=== PATIENT | female | born 1950 | race Caucasian/White ===

== ENCOUNTER 2016-04-22 04:44 | Emergency (ER) | payer OTHER ==
[~2016-04-22] VITALS: Ht 170.2 cm; Wt 84.1 kg
[2016-04-22 04:47] VITALS: BP 177/70; PULSE 65; RESP 16; TEMP 87.4; TEMP 98.7; O2SAT 99
[2016-04-22 06:18] LABS: AUTOMATED NEUTROPHIL # 1.8 TH/MM3 (1.8-7.7); BACTERIA, URINE RARE /hpf; BASOPHIL % 0.3 % (0.0-2.0); BLOOD, URINE NEG (NEG); COMMENT (UR) CULT NOT INDICATED; CULTURE IF INDICATED CULT NOT INDICATED; EOSINOPHIL # 0.1 TH/MM3 (0-0.4); EOSINOPHIL % 4.4 % (0.0-4.0); GLUCOSE,URINE NEG (NEG); HEMATOCRIT 29.7 % (35.0-46.0); HYALINE CAST, URINE 2 /lpf (RARE); KETONE, URINE NEG (NEG); LYMPH % 16.1 % (9.0-44.0); LYMPHOCYTE # 0.4 TH/MM3 (1.0-4.8); MEAN CORPUSCULAR HEMOGLOBIN 36.4 PG (27.0-34.0); MEAN CORPUSCULAR HGB CONC 33.7 % (32.0-36.0); MUCUS URINE FEW /lpf (OCC); NEUT % 66.2 % (16.0-70.0); NITRITE,URINE NEG (NEG); PH, URINE 5.5 (5.0-8.5); PLATELET COUNT 73 TH/MM3 (150-450); RED BLOOD COUNT 2.75 MIL/MM3 (4.00-5.30); RED CELL DISTRIBUTION WIDTH 16.4 % (11.6-17.2); RENAL EPITHELIAL CELLS <1 /hpf; SQUAMOUS EPITHELIAL CELL URINE <1 /hpf (0-5); URINE COLOR YELLOW (YELLW/STRAW); WHITE BLOOD COUNT 2.7 TH/MM3 (4.0-11.0)
[2016-04-22 06:23] LABS: HEMO FLAGS AUTO DIFF
[2016-04-22 06:29] LABS: APTT (PATIENT) 24.6 SEC (24.3-30.1); PROTHROMBIN TIME - PATIENT 11.4 SEC (9.8-11.6)
[2016-04-22 06:37] LABS: ALKALINE PHOSPHATASE 180 U/L (45-117); TOTAL BILIRUBIN ADULT 0.7 MG/DL (0.2-1.0)
[2016-04-22 06:39] LABS: ALT (GPT) 80 U/L (10-53); ANION GAP 7 MEQ/L (5-15); AST (GOT) 71 U/L (15-37); BICARBONATE 22.9 MEQ/L (21.0-32.0); BLOOD UREA NITROGEN 29 MG/DL (7-18); CHLORIDE 115 MEQ/L (98-107); GLOMERULAR FILTRATION RATE 35 ML/MIN (>89); SODIUM (NA) 145 MEQ/L (136-145)
[2016-04-22 06:43] LABS: POTASSIUM 4.2 MEQ/L (3.5-5.1)
--- NOTE | 2016-04-22 06:50 | RADRPT ---
EXAM DATE/TIME: 04/22/2016 06:15 [facility] COMPARISON: No previous studies available for comparison. INDICATIONS : Shortness of breath. MEDICAL HISTORY : None. SURGICAL HISTORY : None. ENCOUNTER: Initial ACUITY: 1 day PAIN SCORE: 0/10 LOCATION: Bilateral chest FINDINGS: A single view of the chest demonstrates the lungs to be symmetrically aerated without evidence of mas s, infiltrate or effusion. The cardiomediastinal contours are unremarkable. Osseous structures are intact. CONCLUSION: No acute disease. Chente Easley MD on April 22, 2016 at 6:48 Board Certified Radiologist. This report was verified electronically.
[2016-04-22] MEDS ORDERED: FURO1TAB62 PO (06:59)
[2016-04-22] MEDS ORDERED: HUMALOG SQ (06:59)
[2016-04-22] MEDS ORDERED: ASPI81CH CHEW (06:59)
[2016-04-22] MEDS ORDERED: LANTUS2P SQ (06:59)
[2016-04-22] MEDS ORDERED: TACR1 PO (06:59)
[2016-04-22] MEDS ORDERED: ASPI81TA81 (06:59)
--- NOTE | 2016-04-22 06:59 | PD ---
HPI Chief Complaint: Edema Time Seen by Provider: 05:24 Travel History International Travel<30 days: No Contact w/Intl Traveler<30days: No Traveled to known affect area: No History of Present Illness HPI The patient is a 66 year old female who presents to the [facility] emergency department with a history of abdominal distention that has gradually been getting worse over the last 2 weeks. The patient's medical history is complicated by having liver failure related to [place]. The patient reports that she had a liver transplant done in October 2015. She reports that she suddenly began to develop ascites in March. She reports that she had a diagnostic paracentesis done on March 28, 2016 in [place]. She reports that her liver enzymes are being monitored regularly. She reports that she came to [place] for a short vacation. She reports that she plans on returning back in a week. She reports that she decided to come to the emergency department today when she became short of breath with lying flat due to the swelling in her abdomen pushing up her diaphragm. She reports that yesterday she did try to set up an outpatient paracentesis, however she was told that she would need a local H&P done prior to this being accomplished. The patient denies any recent fevers cough, congestion, neck pain, chest pain, worsening lower extremity edema , calf pain, calf erythema abdominal pain, vomiting, diarrhea, urinary symptoms , or neurologic symptoms. [facility] Past Medical History Narrative Medical The patient's past medical history is significant for COPD, diabetes mellitus, liver failure status post liver transplant. Hx Anticoagulant Therapy: Yes (ASA) Diabetes: Yes (TYPE 2) Patient Takes Glucophage: No Diminished Hearing: No Medical other: Yes (HX OF CONNE[place]) Respiratory: Yes (COPD) ?: Not Past Surgical History Narrative Surgical The patient's past surgical history is significant for a liver transplant, C- section, anion ectomy of bilateral feet, cholecystectomy, skin cancer resection from the left shoulder, benign lump removed from the left side of the neck. Abdominal Surgery: Yes (LIVER TRANSPLANT) Section: Yes Cholecystectomy: Yes Gynecologic Surgery: Yes () Social History Alcohol Use: No Tobacco Use: No Substance Use: No Allergies-Medications (Allergen,Severity, Reaction): Coded Allergies: Sulfa (Verified Allergy, Intermediate, BLISTERS IN MOUTH, 04/22/16) Reported Meds & Prescriptions Reported Meds & Active Scripts Active Reported Lasix (Furosemide) 20 Mg Tab 20 Mg PO DAILY Prograf (Tacrolimus) 1 Mg Cap 2 Mg PO BID Aspirin 81 Mg Chew 81 Mg CHEW DAILY Aspir-81 (Aspirin) 81 Mg Tabdr Humalog Inj (Insulin Human Lispro) 1,000 Unit/10 Ml Vial 1-9 Units SQ ACHS Max dose at bedtime:( )units; sugars< 70,(0)units; sugars 150-199,(1)unit; sugars 200-249,(3)units; sugars 250-299,(5)units; sugars 300-349,(7)units; sugars more than 349,(9)units. Lantus Inj (Insulin Glargine) 1,000 Unit/10 Ml Vial 20 Units SQ HS Review of Systems Except as stated in HPI: all other systems reviewed are Neg General / Constitutional: No: Fever Eyes: No: Visual changes HENT: No: Headaches Cardiovascular: No: Chest Pain or Discomfort Respiratory: No: Shortness of Breath Gastrointestinal: Positive: Abdominal Pain (abdominal distention), No: Nausea , Vomiting, Diarrhea Genitourinary: No: Dysuria Musculoskeletal: No: Pain Skin: No Rash Neurologic: No: Weakness, Focal Abnormalities, Change in Mentation, Slurred Speech, Sensory Disturbance Psychiatric: No: Depression Endocrine: No: Polydipsia Hematologic/Lymphatic: No: Easy Bruising Physical Exam Narrative General: The patient is a well-developed well-nourished female in no acute distress. Head and Neck exam: Head is normocephalic atraumatic. Eyes: Pupils are equal round and reactive to light. Nose: Midline septum with pink mucous membranes Mouth: Dentition unremarkable. Moist mucus membranes. Posterior oropharynx is not erythematous. No tonsillar hypertrophy. Uvula midline. Airway patent. Neck: No palpable lymphadenopathy. No nuchal rigidity. No thyromegaly. Cardiovascular: Regular rate and rhythm without murmurs, gallops, or rubs. Lungs: Clear to auscultation bilaterally. No wheezes, rhonchi, or rales. Abdomen: Soft, without tenderness to palpation in all 4 quadrants of the abdomen. The patient has abdominal distention noted with a positive fluid wave. No guarding , rebound, or rigidity. Negative [place] sign. No tenderness on palpation of McBurney's point. Extremities: No clubbing or cyanosis. The patient has trace pedal edema bilateral lower extremities. 2+ pulses in all 4 extremities. No calf tenderness on palpation. Back: No spinous process tenderness to palpation. No costovertebral angle tenderness to palpation. Neurologic Exam: Grossly nonfocal. Skin Exam: No rash noted. Intact skin that is warm and dry. Data Data Last Documented VS Vital Signs Date Time Temp Pulse Resp B/P Pulse Ox O2 Delivery O2 Flow Rate FiO2 04/22/16 04:47 98.7 65 16 177/70 99 Orders Electrocardiogram (04/22/16 05:41) Complete Blood Count With Diff (04/22/16 05:41) Comprehensive Metabolic Panel (04/22/16 05:41) B-Type Natriuretic Peptide (04/22/16 05:41) Prothrombin Time / Inr (Pt) (04/22/16 05:41) Act Partial Throm Time (Ptt) (04/22/16 05:41) Lipase (04/22/16 05:41) Urinalysis - C+S If Indicated (04/22/16 05:41) Magnesium (Mg) (04/22/16 05:41) Chest, Single Ap (04/22/16 05:41) Iv Access Insert/Monitor (04/22/16 05:41) Ecg Monitoring (04/22/16 05:41) Oximetry (04/22/16 05:41) Labs Laboratory Tests Test 04/22/16 06:00 White Blood Count 2.7 TH/MM3 Red Blood Count 2.75 MIL/MM3 Hemoglobin 10.0 GM/DL Hematocrit 29.7 % Mean Corpuscular Volume 108.0 FL Mean Corpuscular Hemoglobin 36.4 PG Mean Corpuscular Hemoglobin 33.7 % Concent Red Cell Distribution Width 16.4 % Platelet Count 73 TH/MM3 Mean Platelet Volume 9.1 FL Neutrophils (%) (Auto) 66.2 % Lymphocytes (%) (Auto) 16.1 % Monocytes (%) (Auto) 13.0 % Eosinophils (%) (Auto) 4.4 % Basophils (%) (Auto) 0.3 % Neutrophils # (Auto) 1.8 TH/MM3 Lymphocytes # (Auto) 0.4 TH/MM3 Monocytes # (Auto) 0.3 TH/MM3 Eosinophils # (Auto) 0.1 TH/MM3 Basophils # (Auto) 0.0 TH/MM3 CBC Comment AUTO DIFF Prothrombin Time 11.4 SEC Prothromb Time International 1.0 RATIO Ratio Activated Partial 24.6 SEC Thromboplast Time Urine Color YELLOW Urine Turbidity CLEAR Urine pH 5.5 Urine Specific [place] 1.013 Urine Protein NEG mg/dL Urine Glucose (UA) NEG mg/dL Urine Ketones NEG mg/dL Urine Occult Blood NEG Urine Nitrite NEG Urine Bilirubin NEG Urine Urobilinogen LESS THAN 2.0 MG/DL Urine Leukocyte Esterase NEG Urine WBC 3 /hpf Urine Squamous Epithelial <1 /hpf Cells Urine Renal Epithelial Cells <1 /hpf Urine Bacteria RARE /hpf Urine Hyaline Casts 2 /lpf Urine Mucus FEW /lpf Microscopic Urinalysis Comment CULT NOT INDICATED Sodium Level 145 MEQ/L Potassium Level 4.2 MEQ/L Chloride Level 115 MEQ/L Carbon Dioxide Level 22.9 MEQ/L Anion Gap 7 MEQ/L Blood Urea Nitrogen 29 MG/DL Creatinine 1.49 MG/DL Estimat Glomerular Filtration 35 ML/MIN Rate Random Glucose 66 MG/DL Calcium Level 8.1 MG/DL Magnesium Level 2.0 MG/DL Total Bilirubin 0.7 MG/DL Aspartate Amino Transf 71 U/L (AST/SGOT) Alanine Aminotransferase 80 U/L (ALT/SGPT) Alkaline Phosphatase 180 U/L B-Type Natriuretic Peptide 137 PG/ML Total Protein 6.1 GM/DL Albumin 3.4 GM/DL Lipase 27 U/L MDM Medical Decision Making Medical Screen Exam Complete: Yes Emergency Medical Condition: Yes Medical Record Reviewed: Yes Differential Diagnosis Recurrent ascites, versus pneumonia, versus congestive heart failure Narrative Course During the course of the patients emergency department visit, the patients history, examination, and differential diagnosis were reviewed with the patient. The patient had IV access obtained and blood work sent for analysis. The patient was placed on a cardiac tech with oximetry and blood pressure monitoring. An EKG was done on arrival. The patient's EKG shows a sinus rhythm , right bundle branch block, left anterior fascicular block, intraventricular conduction delay of 140 ms, no acute ST segment elevation is noted, T waves are inverted in V1. The patients laboratory studies were reviewed and remarkable for a white count of 2.7, hemoglobin 10, platelets 73, monocytes 13, CMP is remarkable for a chloride of 115, BUN 29, creatinine 1.49, glucose 66, AST 71, ALT 80, alkaline phosphatase 180, BNP 137, lipase 27, PT 11.4, INR 1.0, PTT 24.6, urinalysis is unremarkable. The patient's Accu-Chek were read repeated. The patient had a blood sugar of 76. Radiology studies were reviewed and remarkable for a chest x-ray that shows no acute abnormality. A call was placed out to the interventional radiology Department. I spoke to the ultrasound area and was told the proper way to schedule an outpatient paracentesis for this patient. A lab slip was ordered on the patient for a therapeutic ultrasound-guided paracentesis. The necessary labs were ordered and the criteria was met and that the patient's platelet count is greater than 50, INR is less than 2. The patient will be given a copy of her current laboratory studies to share with her doctors in [place]. The patient will be given a copy of her outpatient order sheet. I was told that the patient will be contacted by the interventional field education coordinator, Anisha, later today. The patient is resting comfortably and feels better, is alert and in no distress. The patients results and examination findings were discussed with the patient. The repeat examination is unremarkable and benign. The history, exam, diagnostic testing, and current condition do not suggest any significant pathology to warrant further testing, continued ED treatment, admission, or surgical evaluation at this point. The vital signs have been stable. The patient does not have uncontrollable pain, intractable vomiting, or other significant symptoms. The patient's condition is stable and appropriate for discharge. The patient will pursue further outpatient evaluation with a primary care physician or other designated or consulting physician as indicated in the discharge instructions. The patient expressed understanding and was agreeable with this plan. Diagnosis Primary Impression: Ascites Qualified Code: R18.8 - Other ascites Referrals: Primary Care Physician 1 week Patient Instructions: Ascites (ED), General Instructions Additional Instructions: Follow-up with outpatient interventional radiology for therapeutic ultrasound- guided paracentesis Disposition: 01 DISCHARGE HOME Condition: Stable Briana Valdez MD Apr 22, 2016 06:59
[2016-04-22 07:19] LABS: PLATELET ESTIMATE SMEAR LOW (NORMAL); PLATELET MORPHOLOGY NORMAL (NORMAL); SCAN/DIFF AUTO DIFF CONFIRMED
--- NOTE | 2016-04-23 22:48 | EKG ---
Date Performed: 04/22/2016 Time Performed: 07:08:00 PTAGE: 66 years EKG: Sinus rhythm RIGHT BUNDLE BRANCH BLOCK LEFT ANTERIOR FASCICULAR BLOCK POSSIBLE SEPTAL MYOCARDIAL INFARCTION ABNOR MAL ECG NO PREVIOUS TRACING DOCTOR: Sabrina Villasenor Interpretating Date/Time 04/23/2016 22:46:49
== END 2016-04-22 08:36 | disposition home or self-care (01) ==
LOC: NEPC 04:44
DX: R18.8 Other ascites (principal); R94.31 Abnormal electrocardiogram [ECG] [EKG]; R06.02 Shortness of breath; E11.9 Type 2 diabetes mellitus without complications; Z79.01 Long term (current) use of anticoagulants; Z94.4 Liver transplant status
CPT/HCPCS: 71010; 80053; 81001; 83690; 83735; 83880; 85025; 85610; 85730; 93005; 99283

== ENCOUNTER 2016-04-23 13:18 | Day surgery (SDC) | payer OTHER ==
[~2016-04-23 13:18] MED LIST: ASPI81CH CHEW; ASPI81TA81; FURO1TAB62 PO; HUMALOG SQ; LANTUS2P SQ; TACR1 PO
[2016-04-23 14:19] VITALS: BP 146/73; PULSE 58; RESP 16; O2SAT 97
[2016-04-23] MEDS ORDERED: ALBUMIN HUMAN 25% 25 GM/100 ML BAGP IV ONE (15:00)
--- NOTE | 2016-04-23 15:47 | RADRPT ---
EXAM DATE/TIME: 04/23/2016 14:29 [facility] COMPARISON: No previous studies available for comparison. INDICATIONS : Ascites. MEDICAL HISTORY : Chronic obstructive pulmonary disease. Diabetes mellitus type 2. SURGICAL HISTORY : section. Liver transplant. ENCOUNTER: Initial ACUITY: 2 weeks PAIN SCORE: 4/10 LOCATION: Left lower quadrant FLUID: Total volume of 6000 cc of clear, yellow fluid was removed. Fluid was discarded. Paracentesis was therapeutic only. Post procedure scanning reveals no hematoma or other complication. TECHNIQUE: 1. Ultrasound guidance for abdominal paracentesis. 2. Paracentesis. The risks, benefits, and alternatives to ultrasound guided paracentesis were explained to the patient in detail including the risk of bleeding and infection. Written and verbal informed consent was obt ained. With the patient on the ultrasound table, ultrasound imaging was used to select the most appropriate approach for paracentesis. Overlying skin was prepped and draped in the usual sterile fashion and wi th a local anesthetic, a dermatotomy was made with an 11 blade scalpel. A 6 [place] [id number] ca theter was introduced into the peritoneal cavity and fluid was collected. The patient tolerated the procedure well and left the ultrasound suite in stable condition. CONCLUSION: Uncomplicated ultrasound guided paracentesis. Patient received albumin per protocol. Umesh Salamanca MD FACR on April 23, 2016 at 15:45 Board Certified Radiologist. This report was verified electronically.
[2016-04-23] MEDS ORDERED: ALBUMIN HUMAN 25% 12.5 GM/50 ML BAGP IV ONE (16:02)
[2016-04-23 16:35] VITALS: BP 153/81; PULSE 66; RESP 16; O2SAT 95
== END 2016-04-23 16:45 | disposition home or self-care (01) ==
LOC: HRAD 13:18 → HRIP 13:44 → HRAD 16:45
PROVIDERS: ATTEND Family Medicine
DX: R18.8 Other ascites (principal); J44.9 Chronic obstructive pulmonary disease, unspecified; E11.9 Type 2 diabetes mellitus without complications
CPT/HCPCS: 49083; 96365; C1729; P9047

== ENCOUNTER 2017-04-11 11:54 | Inpatient (IN) | payer MEDICARE, OTHER ==
[~2017-04-11] VITALS: Ht 170.2 cm; Wt 79.0 kg
[~2017-04-11 11:54] MED LIST changes: +ASPI-516 CHEW; -ASPI81CH CHEW
[2017-04-11 11:55] VITALS: BP 165/71; PULSE 74; RESP 14; TEMP 98.1; O2SAT 99
[2017-04-11] MEDS ORDERED: CYCL100C6 PO (12:26)
--- NOTE | 2017-04-11 12:30 | PD ---
HPI Chief Complaint: Dizziness Time Seen by Provider: 12:08 Travel History International Travel<30 days: No Contact w/Intl Traveler<30days: No Traveled to known affect area: No History of Present Illness HPI 67-year-old female that presents to the ED for evaluation of vertigo, nausea and vomiting since last night as well as feeling of weakness. Per patient she' s had this for about less than 24 hours. Per patient she has significant history including Castellanos and diabetes. 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 She's been compliant with her immunosuppression. Per patient she's had episodes like this in the past and last time she had this she was told she had a UTI and was given Cipro with relief. Per patient he feels very similar. Per patient she doesn't have any dysuria or polyuria. She does get paracentesis every month and had one about 2 weeks ago with no issues. She denies any chest pain or shortness of breath. Per patient when she vomits she vomits phlegm. No blood. No blood in the stool or urine or throw up. Denies any cold-like symptoms. No fevers chills or sweats. Has not checked her temperature. Denies any headache or blurry vision or double vision. She does state feeling somewhat tired more weak than her usual. She is noted that she is gaining some weight but she attributes this to eating "too much during my vacation". States having no pain at this time. Other medical issues. She does have a history of a hernia that she's had since having the transplant [facility] Past Medical History Hx Anticoagulant Therapy: Yes (ASA) Diabetes: Yes (humalog, lantus ) Patient Takes Glucophage: No Diminished Hearing: No Respiratory: Yes (COPD) Past Surgical History Abdominal Surgery: Yes (LIVER TRANSPLANT) Section: Yes Cholecystectomy: Yes Gynecologic Surgery: Yes () Social History Alcohol Use: No Tobacco Use: No Substance Use: No Allergies-Medications (Allergen,Severity, Reaction): Coded Allergies: Sulfa (Sulfonamide Antibiotics) (Unverified Allergy, Intermediate, BLISTERS IN MOUTH, 04/11/17) Reported Meds & Prescriptions Reported Meds & Active Scripts Active Reported Cyclosporine 100 Mg Cap 100 Mg PO BID Lasix (Furosemide) 20 Mg Tab 40 Mg PO DAILY Aspirin 81 Mg Chew 81 Mg CHEW DAILY Humalog Inj (Insulin Human Lispro) 1,000 Unit/10 Ml Vial 1-9 Units SQ ACHS Max dose at bedtime:( )units; sugars< 70,(0)units; sugars 150-199,(1)unit; sugars 200-249,(3)units; sugars 250-299,(5)units; sugars 300-349,(7)units; sugars more than 349,(9)units. Lantus Inj (Insulin Glargine) 1,000 Unit/10 Ml Vial 18 Units SQ HS Review of Systems Except as stated in HPI: all other systems reviewed are Neg Physical Exam Narrative GENERAL: Well-nourished, well-developed patient in no apparent distress. SKIN: Warm and dry. HEAD: Atraumatic. Normocephalic. EYES: Pupils equal and round reactive to light and accommodation. No scleral icterus. No injection or drainage. ENT: No nasal bleeding or discharge. Mucous membranes pink and moist. TMs are clear with no sign of infection or perforation. No mastoid tenderness. Ear canals are intact bilaterally. No lymphadenopathy. Nostril mucosa is red and moist with clear mucus noted. No sinus tenderness to palpation noted. Tonsils are not enlarged or swollen. No ulvua Deviation. Tongue is midline. NECK: Trachea midline. No JVD. No meningeal signs noted CARDIOVASCULAR: Regular rate and rhythm. RESPIRATORY: No accessory muscle use. Clear to auscultation. Breath sounds equal bilaterally. GASTROINTESTINAL: Abdomen soft, non-tender, slightly distended with what appears to be a hernia that is chronic and reducible. Hepatic and splenic margins not palpable. MUSCULOSKELETAL: Extremities without clubbing, cyanosis, or edema. No obvious deformities. Full range of motion of the upper and lower extremities bilaterally. 2+ pulses bilaterally. NEUROLOGICAL: Awake and alert. No obvious cranial nerve deficits. Motor grossly within normal limits. Five out of 5 muscle strength in the arms and legs. Normal speech. PSYCHIATRIC: Appropriate mood and affect; insight and judgment normal. Data Data Last Documented VS Vital Signs Date Time Temp Pulse Resp B/P (MAP) Pulse Ox O2 Delivery O2 Flow Rate FiO2 04/11/17 11:55 98.1 74 14 165/71 (102) 99 Orders Orders Electrocardiogram (04/11/17 12:19) Complete Blood Count With Diff (04/11/17 12:19) Comprehensive Metabolic Panel (04/11/17 12:19) Prothrombin Time / Inr (Pt) (04/11/17 12:19) Act Partial Throm Time (Ptt) (04/11/17 12:19) Lactic Acid Sepsis Protocol (04/11/17:) Magnesium (Mg) (04/11/17 12:19) Lipase (04/11/17:) Urinalysis - C+S If Indicated (04/11/17:) Influenzae A/B Antigen (04/11/17:) Chest, Single Ap (04/11/17:) Ct Brain W/O Iv Contrast(Rout) (04/11/17 12:19) Ondansetron Inj (Zofran Inj) (04/11/17 13:15) Sodium Chlorid 0.9% 500 Ml Inj (Ns 500 M (04/11/17 13:30) Troponin I (04/11/17 13:26) Ckmb (Isoenzyme) Profile (04/11/17 13:26) Urine Culture (04/11/17 13:30) CKMB (04/11/17 12:30) CKMB% (04/11/17 12:30) Blood Culture (04/11/17 15:02) Code Status (04/11/17 15:01) Vital Signs (Adult) Q4H (04/11/17 15:01) Activity Oob Ad Nano (04/11/17 15:01) Bedside Glucose CHEY.CSUGAR (04/11/17 15:) Sales Promotion Coordinator / Telemetry .CONTINUOUS (04/11/17 15:) Intake + Output CHEY.QSHIFT (04/11/17 15:01) Notify Dr: Other (04/11/17 15:01) Sodium Chlor 0.9% 1000 Ml Inj (Ns 1000 M (04/11/17 15:00) Sodium Chloride 0.9% Flush (Ns Flush) (04/11/17 15:15) Sodium Chloride 0.9% Flush (Ns Flush) (04/11/17 21:00) Ondansetron Inj (Zofran Inj) (04/11/17 15:15) Comprehensive Metabolic Panel (04/12/17 06:00) Complete Blood Count With Diff (04/12/17 06:00) Creatine Kinase (Cpk) (04/11/17 15:01) Creatine Kinase (Cpk) (04/11/17 21:01) Troponin I (04/11/17 15:01) Troponin I (04/11/17 21:01) Blood Culture (04/11/17 15:01) Resp Oxygen Elno C Titrat 1-4 L (04/11/17 ) Case Management Consult (04/11/17 15:01) Enoxaparin Inj (Lovenox Inj) (04/11/17 16:00) Scd Bilateral/Knee High CHEY.BID (04/11/17 15:01) Naloxone Inj (Narcan Inj) (04/11/17 15:15) Sennosides (Senokot) (04/11/17 15:15) Bisacodyl Supp (Dulcolax Supp) (04/11/17 15:15) Lactulose Liq (Lactulose Liq) (04/11/17 15:15) Insulin Aspart Supplemtl Scale (Novolog (04/11/17 17:00) Aspirin Chew (Aspirin Chew) (04/12/17 09:00) Cyclosporine (Sandimmune) (04/11/17 21:00) Furosemide (Lasix) (04/12/17 09:00) Insulin Glargine Inj (Lantus Inj) (04/11/17 21:00) Admit Order (Ed Use Only) (04/11/17 15:06) Diet Full Liquid (04/11/17 Dinner) Dextrose 50% In [place] (Vial) Inj (D50w (Vi (04/11/17 15:15) Glucagon Inj (Glucagon Inj) (04/11/17 15:15) Ct Abd/Pel W/O Iv Contrast (04/11/17 ) Albuterol-Ipratropium Neb (Duoneb Neb) (04/11/17 16:00) Guaifenesin Er (Mucinex Er) (04/11/17 21:00) Resp Incentive Spirometry (04/11/17 ) Labs Laboratory Tests Test 04/11/17 12:30 04/11/17 13:30 White Blood Count 6.6 TH/MM3 Red Blood Count 3.41 MIL/MM3 Hemoglobin 12.0 GM/DL Hematocrit 36.0 % Mean Corpuscular Volume 105.5 FL Mean Corpuscular Hemoglobin 35.2 PG Mean Corpuscular Hemoglobin Concent 33.3 % Red Cell Distribution Width 15.5 % Platelet Count 113 TH/MM3 Mean Platelet Volume 8.6 FL Neutrophils (%) (Auto) 45.3 % Lymphocytes (%) (Auto) 44.6 % Monocytes (%) (Auto) 7.4 % Eosinophils (%) (Auto) 2.5 % Basophils (%) (Auto) 0.2 % Neutrophils # (Auto) 3.0 TH/MM3 Lymphocytes # (Auto) 3.0 TH/MM3 Monocytes # (Auto) 0.5 TH/MM3 Eosinophils # (Auto) 0.2 TH/MM3 Basophils # (Auto) 0.0 TH/MM3 CBC Comment DIFF FINAL Differential Comment Prothrombin Time 10.9 SEC Prothromb Time International Ratio 1.1 RATIO Activated Partial Thromboplast Time 22.9 SEC Blood Urea Nitrogen 38 MG/DL Creatinine 1.40 MG/DL Random Glucose 178 MG/DL Total Protein 7.8 GM/DL Albumin 3.5 GM/DL Calcium Level 8.2 MG/DL Magnesium Level 2.2 MG/DL Alkaline Phosphatase 124 U/L Aspartate Amino Transf (AST/SGOT) 80 U/L Alanine Aminotransferase (ALT/SGPT) 52 U/L Total Bilirubin 1.2 MG/DL Sodium Level 141 MEQ/L Potassium Level 5.3 MEQ/L Chloride Level 109 MEQ/L Carbon Dioxide Level 24.7 MEQ/L Anion Gap 7 MEQ/L Estimat Glomerular Filtration Rate 38 ML/MIN Lactic Acid Level 1.0 mmol/L Total Creatine Kinase 262 U/L Creatine Kinase MB 1.9 NG/ML Creatine Kinase MB % 0.7 % Troponin I LESS THAN 0.02 NG/ML Lipase LESS THAN 10 U/L Urine Color LIGHT-YELLOW Urine Turbidity CLEAR Urine pH 5.0 Urine Specific [place] 1.011 Urine Protein TRACE mg/dL Urine Glucose (UA) NEG mg/dL Urine Ketones NEG mg/dL Urine Occult Blood NEG Urine Nitrite NEG Urine Bilirubin NEG Urine Urobilinogen LESS THAN 2.0 MG/DL Urine Leukocyte Esterase TRACE Urine RBC 1 /hpf Urine WBC 2 /hpf Urine Squamous Epithelial Cells 1 /hpf Urine Transitional Epithelial Cells <1 /hpf Urine Bacteria RARE /hpf Urine Hyaline Casts 1 /lpf Microscopic Urinalysis Comment CATH-CULTURE IND MDM Medical Decision Making Medical Screen Exam Complete: Yes Emergency Medical Condition: Yes Medical Record Reviewed: Yes Interpretation(s) CBC & BMP Diagram 04/11/17 12:30 Total Protein 7.8, Albumin 3.5, Calcium Level 8.2 L, Magnesium Level 2.2, Alkaline Phosphatase 124 H, Aspartate Amino Transf (AST/SGOT) 80 H, Alanine Aminotransferase (ALT/SGPT) 52, Total Bilirubin 1.2 H lactic acid WNL UA shows leukerase esterase and some rare bacteria. EKG shows sinus rhythm with no sign of acute ischemia or arrhythmia recommended by me and attending. Troponin and CK-MB negative. Last Impressions Head CT 04/11/171218 Signed Impressions: Service Date/Time: Tuesday, April 11, 2017 12:41 - CONCLUSION: No acute disease. Sabra Sexton MD Chest X-Ray 04/11/171218 Signed Impressions: Service Date/Time: Tuesday, April 11, 2017 12:51 - CONCLUSION: No acute disease. Sabra Sexton MD Differential Diagnosis Dizziness versus vertigo versus UTI versus URI versus viral illness versus ACS versus arrhythmia Narrative Course 67-year-old female that presents to the ED for evaluation of vertigo and weakness. Patient was properly examined and was found to have signs and symptoms which appear to be consistent with possible infection. Patient states that she's had same symptoms of UTIs in the past. She does have significant history including transplant of liver with immunosuppressants. I do recommend workup to rule out any sign of acute illness. Patient agrees with this plan. Labs and imaging showed no sign of acute disease other than what appears to be acute on chronic kidney disease. Likely dehydration. We had the patient ambulate and she could barely make it. Patient still is very symptomatically feels very weak. Unclear as to the cause of symptoms. Patient has no abdominal pain on my examination. Patient was given IV fluids with minimal relief. Case was discussed in my attending who recommends admission for further evaluation as patient still very symptomatic. Case discussed with Dr. Ramachandran who agrees to admission to his service. Diagnosis Primary Impression: Pre-syncope Additional Impressions: Dizziness TRICIA (acute kidney injury) Weakness Admitting Information Admitting Physician Requests: Observation Johnie Rodríguez Apr 11, 2017 12:30
[2017-04-11 12:52] LABS: BASOPHIL % 0.2 % (0.0-2.0); EOSINOPHIL # 0.2 TH/MM3 (0-0.4); EOSINOPHIL % 2.5 % (0.0-4.0); LYMPH % 44.6 % (9.0-44.0); MEAN CELL VOLUME 105.5 FL (80.0-100.0); MEAN CORPUSCULAR HEMOGLOBIN 35.2 PG (27.0-34.0); MEAN CORPUSCULAR HGB CONC 33.3 % (32.0-36.0); MEAN PLATELET VOLUME 8.6 FL (7.0-11.0); MONO % 7.4 % (0.0-8.0); MONOCYTE # 0.5 TH/MM3 (0-0.9); NEUT % 45.3 % (16.0-70.0); PLATELET COUNT 113 TH/MM3 (150-450); RED BLOOD COUNT 3.41 MIL/MM3 (4.00-5.30); RED CELL DISTRIBUTION WIDTH 15.5 % (11.6-17.2); WHITE BLOOD COUNT 6.6 TH/MM3 (4.0-11.0)
--- NOTE | 2017-04-11 12:55 | RADRPT ---
EXAM DATE/TIME: 04/11/2017 12:51 [facility] COMPARISON: CHEST SINGLE AP, April 22, 2016, 6:15. INDICATIONS : Cough. Vomiting. MEDICAL HISTORY : Diabetes mellitus type II. SURGICAL HISTORY : Liver transplant. Hernia. ENCOUNTER: Initial ACUITY: 2 days PAIN SCORE: 0/10 LOCATION: Bilateral chest FINDINGS: A single view of the chest demonstrates the lungs to be symmetrically aerated without evidence of mas s, infiltrate or effusion. The cardiomediastinal contours are unremarkable. Osseous structures are intact. CONCLUSION: No acute disease. Sabra Sexton MD on April 11, 2017 at 12:52 Board Certified Radiologist. This report was verified electronically.
[2017-04-11 12:59] LABS: INTERNATIONAL NORMALIZED RATIO 1.1 RATIO; PROTHROMBIN TIME - PATIENT 10.9 SEC (9.8-11.6)
--- NOTE | 2017-04-11 13:11 | RADRPT ---
EXAM DATE/TIME: 04/11/2017 12:41 [facility] COMPARISON: No previous studies available for comparison. INDICATIONS : Dizziness, unsteady gait, vomiting. RADIATION DOSE: 35.00 CTDIvol (mGy) MEDICAL HISTORY : Diabetes mellitus type 2. SURGICAL HISTORY : None. ENCOUNTER: Initial ACUITY: 1 day PAIN SCALE: 0/10 LOCATION: cranial TECHNIQUE: Multiple contiguous axial images were obtained of the head. Using automated exposure control and adj ustment of the mA and/or kV according to patient size, radiation dose was kept as low as reasonably a chievable to obtain optimal diagnostic quality images. DICOM format image data is available electro nically for review and comparison. FINDINGS: CEREBRUM: The ventricles are normal for age. No evidence of midline shift, mass lesion, hemorrhage or acute in farction. No extra-axial fluid collections are seen. POSTERIOR FOSSA: The cerebellum and brainstem are intact. The 4th ventricle is midline. The cerebellopontine angle i s unremarkable. EXTRACRANIAL: The visualized portion of the orbits is intact. SKULL: The calvaria is intact. No evidence of skull fracture. CONCLUSION: No acute disease. Sabra Sexton MD on April 11, 2017 at 13:08 Board Certified Radiologist. This report was verified electronically.
[2017-04-11] MEDS ORDERED: ONDANSETRON HCL 4 MG/2 ML VIAL IV PUSH ONE (13:15)
[2017-04-11 13:24] LABS: ALKALINE PHOSPHATASE 124 U/L (45-117); TOTAL BILIRUBIN ADULT 1.2 MG/DL (0.2-1.0); TOTAL PROTEIN 7.8 GM/DL (6.4-8.2)
[2017-04-11 13:25] LABS: ALBUMIN 3.5 GM/DL (3.4-5.0); ALT (GPT) 52 U/L (10-53); AST (GOT) 80 U/L (15-37); BICARBONATE 24.7 MEQ/L (21.0-32.0); BLOOD UREA NITROGEN 38 MG/DL (7-18); CALCIUM 8.2 MG/DL (8.5-10.1); CHLORIDE 109 MEQ/L (98-107); GLOMERULAR FILTRATION RATE 38 ML/MIN (>89); GLUCOSE,RANDOM 178 MG/DL (74-106); MAGNESIUM 2.2 MG/DL (1.5-2.5); SODIUM (NA) 141 MEQ/L (136-145)
[2017-04-11] MEDS ORDERED: SODIUM CHLORID 0.9% 500 ML INJ 500 ML IV ONE (13:30)
[2017-04-11 13:59] LABS: BACTERIA, URINE RARE /hpf; BILIRUBIN, URINE NEG (NEG); BLOOD, URINE NEG (NEG); GLUCOSE,URINE NEG (NEG); HYALINE CAST, URINE 1 /lpf (RARE); KETONE, URINE NEG (NEG); NITRITE,URINE NEG (NEG); SQUAMOUS EPITHELIAL CELL URINE 1 /hpf (0-5); TRANSITIONAL EPI CELLS, URINE <1 /hpf; URINE COLOR LIGHT-YELLOW (YELLW/STRAW); URINE LEUKOCYTE ESTERASE TRACE (NEG)
[2017-04-11 14:04] LABS: TROPONIN I LESS THAN 0.02 NG/ML (0.02-0.05)
--- NOTE | 2017-04-11 15:07 | HHI.HP ---
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 Per patient she's had episodes like this in the past, treated last time for UTI with Ciprofloxacin, She does get paracentesis every month and had one about 2 weeks ago with no issues. She denies any chest pain or shortness of breath. Per patient when she vomits she vomits phlegm. No blood. No blood in the stool or urine or throw up. Denies any cold-like symptoms. No fevers chills or sweats. She does state feeling somewhat tired more weak than her usual. noted some weight gain due to that she is eating more and also Abdominal hernia after transplant. Patient seen in Emergency room in the presence of her Mr. Brad Morales, she had her Liver Transplant on November 03 2015 at [place], [place], by Transplant Specialist Doctor Deedee Villalobosoad, she states that came for vacation to this area, from the last day started with Nausea, vomit but no diarrhea, does not have appetite and does not want to eat anything, had dizziness and generalized numbness, denies any chest pain, her EKG reviewed and has some ischemic changes. Troponin within normal limits will continue titration of Cardiac enzymes and Cardiac monitoring. Review of Systems Constitutional: COMPLAINS OF: Dizziness, DENIES: Fever, Chills, Change in appetite Endocrine: DENIES: Heat/cold intolerance Eyes: DENIES: Blurred vision, Eye pain Gastrointestinal: COMPLAINS OF: Nausea, Vomiting Except as stated in HPI: all other systems reviewed are Neg Past Family Social History Past Medical History DM II COPD CONNELL Past Surgical History Liver Transplant November 03 2015 Recurrent Paracentesis last one March 31 2017 C Section Cholecystectomy Reported Medications Reported Meds & Active Scripts Active Reported Cyclosporine 100 Mg Cap 100 Mg PO BID Lasix (Furosemide) 20 Mg Tab 40 Mg PO DAILY Aspirin 81 Mg Chew 81 Mg CHEW DAILY Humalog Inj (Insulin Human Lispro) 1,000 Unit/10 Ml Vial 1-9 Units SQ ACHS Max dose at bedtime:( )units; sugars< 70,(0)units; sugars 150-199,(1)unit; sugars 200-249,(3)units; sugars 250-299,(5)units; sugars 300-349,(7)units; sugars more than 349,(9)units. Lantus Inj (Insulin Glargine) 1,000 Unit/10 Ml Vial 18 Units SQ HS Allergies: Coded Allergies: Sulfa (Sulfonamide Antibiotics) (Unverified Allergy, Intermediate, BLISTERS IN MOUTH, 04/11/17) Active Ordered Medications Current Medications Medications (Trade) Dose Ordered Sig/Jaqueline Route Start Time Stop Time Status Last Admin Sodium Chloride 1,000 ml @ 100 mls/hr Q10H IV 04/11/17 15:00 04/11/17 15:22 (NS Flush) 2 ml UNSCH PRN IV FLUSH 04/11/17 15:15 (NS Flush) 2 ml BID IV FLUSH 04/11/17 21:00 (Zofran Inj) 4 mg Q6H PRN IVP 04/11/17 15:15 (Lovenox Inj) 40 mg Q24H SQ 04/11/17 16:00 (Narcan Inj) 0.4 mg UNSCH PRN IV PUSH 04/11/17 15:15 (Senokot) 17.2 mg Q12H PRN PO 04/11/17 15:15 (Dulcolax Supp) 10 mg DAILY PRN RECTAL 04/11/17 15:15 (Lactulose Liq) 30 ml DAILY PRN PO 04/11/17 15:15 (NovoLOG SUPPLEMENTAL SCALE) 1 ACHS SLIDING SCALE SQ 04/11/17 17:00 (Aspirin Chew) 81 mg DAILY CHEW 04/12/17 09:00 (SandIMMUNE) 100 mg BID PO 04/11/17 21:00 (Lasix) 40 mg DAILY PO 04/12/17 09:00 (D50w (Vial) Inj) 50 ml UNSCH PRN IV PUSH 04/11/17 15:15 (Glucagon Inj) 1 mg UNSCH PRN OTHER 04/11/17 15:15 (Duoneb Neb) 1 ampule Q4HR NEB NEB 04/11/17 16:00 (Mucinex Er) 600 mg BID PO 04/11/17 21:00 Family History Father with esophageal Cancer Sister with Stroke and CHF Mother with CAD Social History Denies any toxic habits. Lives with her , at [place], [place] Physical Exam Vital Signs Vital Signs Date Time Temp Pulse Resp B/P (MAP) Pulse Ox O2 Delivery O2 Flow Rate FiO2 04/11/17 11:55 98.1 74 14 165/71 (102) 99 Physical Exam GENERAL: This is a well-nourished, well-developed patient, in no apparent distress. SKIN: No rashes, ecchymoses or lesions. Cool and dry. HEAD: Atraumatic. Normocephalic. No temporal or scalp tenderness. EYES: Pupils equal round and reactive. Extraocular motions intact. No scleral icterus. No injection or drainage. ENT: Nose without bleeding, purulent drainage or septal hematoma. Throat without erythema, tonsillar hypertrophy or exudate. Uvula midline. Airway patent. NECK: Trachea midline. No JVD or lymphadenopathy. Supple, nontender, no meningeal signs. CARDIOVASCULAR: Regular rate and rhythm without murmurs, gallops, or rubs. RESPIRATORY: Clear to auscultation. Breath sounds equal bilaterally. No wheezes , rales, or rhonchi. GASTROINTESTINAL: Soft, Abdominal Hernia on Right lower abdomen. Ascites. MUSCULOSKELETAL: Extremities without clubbing, cyanosis, or edema. No joint tenderness, effusion, or edema noted. No calf tenderness. Negative Homans sign bilaterally. NEUROLOGICAL: Awake and alert. Cranial nerves II through XII intact. Motor and sensory grossly within normal limits. Five out of 5 muscle strength in all muscle groups. Normal speech. Laboratory Laboratory Tests Test 04/11/17 12:30 04/11/17 13:30 White Blood Count 6.6 Red Blood Count 3.41 Hemoglobin 12.0 Hematocrit 36.0 Mean Corpuscular Volume 105.5 Mean Corpuscular Hemoglobin 35.2 Mean Corpuscular Hemoglobin Concent 33.3 Red Cell Distribution Width 15.5 Platelet Count 113 Mean Platelet Volume 8.6 Neutrophils (%) (Auto) 45.3 Lymphocytes (%) (Auto) 44.6 Monocytes (%) (Auto) 7.4 Eosinophils (%) (Auto) 2.5 Basophils (%) (Auto) 0.2 Neutrophils # (Auto) 3.0 Lymphocytes # (Auto) 3.0 Monocytes # (Auto) 0.5 Eosinophils # (Auto) 0.2 Basophils # (Auto) 0.0 CBC Comment DIFF FINAL Differential Comment Prothrombin Time 10.9 Prothromb Time International Ratio 1.1 Activated Partial Thromboplast Time 22.9 Blood Urea Nitrogen 38 Creatinine 1.40 Random Glucose 178 Total Protein 7.8 Albumin 3.5 Calcium Level 8.2 Magnesium Level 2.2 Alkaline Phosphatase 124 Aspartate Amino Transf (AST/SGOT) 80 Alanine Aminotransferase (ALT/SGPT) 52 Total Bilirubin 1.2 Sodium Level 141 Potassium Level 5.3 Chloride Level 109 Carbon Dioxide Level 24.7 Anion Gap 7 Estimat Glomerular Filtration Rate 38 Lactic Acid Level 1.0 Total Creatine Kinase 262 Creatine Kinase MB 1.9 Creatine Kinase MB % 0.7 Troponin I LESS THAN 0.02 Lipase LESS THAN 10 Urine Color LIGHT-YELLOW Urine Turbidity CLEAR Urine pH 5.0 Urine Specific [place] 1.011 Urine Protein TRACE Urine Glucose (UA) NEG Urine Ketones NEG Urine Occult Blood NEG Urine Nitrite NEG Urine Bilirubin NEG Urine Urobilinogen LESS THAN 2.0 Urine Leukocyte Esterase TRACE Urine RBC 1 Urine WBC 2 Urine Squamous Epithelial Cells 1 Urine Transitional Epithelial Cells <1 Urine Bacteria RARE Urine Hyaline Casts 1 Microscopic Urinalysis Comment CATH-CULTURE IND Date/Time Source Procedure Growth Status 04/11/17 12:30 Nasal Washing Influenza Types A,B Antigen (STEFANIE) - Final NEGATIVE FOR FLU A AND B ANTIGEN.... Complete 04/11/17 13:30 Urine Catheterized Urine Urine Culture Pending Received Result Diagram: 04/11/17 1230 04/11/17 1230 Imaging Last Impressions Head CT 04/11/171218 Signed Impressions: Service Date/Time: Tuesday, April 11, 2017 12:41 - CONCLUSION: No acute disease. Sabra Sexton MD Chest X-Ray 04/11/171218 Signed Impressions: Service Date/Time: Tuesday, April 11, 2017 12:51 - CONCLUSION: No acute disease. MD Cory Sarmiento VTE Risk Assessment Cory VTE Risk Assessment: Mod/High Risk (score >= 2) Caprini Risk Assessment Model Point Value = 1 Point Value = 2 Point Value = 3 Point Value = 5 Age 41-60 Minor surgery BMI > 25 kg/m2 Swollen legs Varicose veins or History of unexplained or recurrent spontaneous Oral contraceptives or hormone replacement Sepsis (< 1 month) Serious lung disease, including pneumonia (< 1 month) Abnormal pulmonary function Acute myocardial infarction Congestive heart failure (< 1 month) History of inflammatory bowel disease Medical patient at bed rest Age 61-74 Arthroscopic surgery Major open surgery (> 45 min) Laparoscopic surgery (> 45 min) Malignancy Confined to bed (> 72 hours) Immobilizing plaster cast Central venous access Age >= 75 History of VTE Family history of VTE Factor V Leiden Prothrombin [id number] Lupus anticoagulant Anticardiolipin antibodies Elevated serum homocysteine Heparin-induced thrombocytopenia Other congenital or acquired thrombophilia Stroke (< 1 month) Elective arthroplasty Hip, pelvis, or leg fracture Acute spinal cord injury (< 1 month) Prophylaxis Regimen Total Risk Factor Score Risk Level Prophylaxis Regimen 0-1 Low Early ambulation 2 Moderate Order ONE of the following: *Sequential Compression Device (SCD) *Heparin 5000 units SQ BID 3-4 Higher Order ONE of the following medications: *Heparin 5000 units SQ TID *Enoxaparin/Lovenox 40 mg SQ daily (WT < 150 kg, CrCl > 30 mL/min) *Enoxaparin/Lovenox 30 mg SQ daily (WT < 150 kg, CrCl > 10-29 mL/min) *Enoxaparin/Lovenox 30 mg SQ BID (WT < 150 kg, CrCl > 30 mL/min) AND/OR *Sequential Compression Device (SCD) 5 or more Highest Order ONE of the following medications: *Heparin 5000 units SQ TID (Preferred with Epidurals) *Enoxaparin/Lovenox 40 mg SQ daily (WT < 150 kg, CrCl > 30 mL/min) *Enoxaparin/Lovenox 30 mg SQ daily (WT < 150 kg, CrCl > 10-29 mL/min) *Enoxaparin/Lovenox 30 mg SQ BID (WT < 150 kg, CrCl > 30 mL/min) AND *Sequential Compression Device (SCD) Assessment and Plan Assessment and Plan 1. Intractable Nausea and vomit, with another symptoms like Dizziness and weakness, she came Dehydrated at this time on IV fluids, will continue Gastric protection and follow Gastroenterology specialist recommendations. probable gastroenteritis, Liquid diet if tolerated. Gastric protection 2. Status post Liver Transplant due to CONNELL. on November 03 2015, with recurrent Ascites and the need for monthly paracentesis the last one March 04 2017, at this time stable. vertigo and weakness. 3. TRICIA on IV fluids until improve 4. DM II on hold long lasting insulin will continue sliding scale follow Hemoglobin A1C 5. COPD by history on Bronchodilator, Mucolytic and incentive spirometry 6. Abnormal EKG with ischemic changes Troponin within normal limits, continue titration and follow on Cardiac monitoring will get Echocardiogram DVT prophylaxis with Heparin. Follow Blood cultures and urine culture Echocardiogram Scrap Charger consult GI consult CT abdomen and Pelvis laboratory complete Code Status Full Code. Discussed Condition With Patient and her Mr. Brad Heckcathielouismarcelino in the room PATRICIA Rodríguez Nurse Miss Roman. Physician Certification 2 Midnight Certification Type: Admission for Inpatient Services Order for Inpatient Services The services are ordered in accordance with Medicare regulations or non- Medicare payer requirements, as applicable. In the case of services not specified as inpatient-only, they are appropriately provided as inpatient services in accordance with the 2-midnight benchmark. Estimated LOS (days): 3 days is the estimated time the patient will need to remain in the hospital, assuming treatment plan goals are met and no additional complications. Post-Hospital Plan: Home Russel Dailey MD Apr 11, 2017 15:07
[2017-04-11] MEDS ORDERED: LACTULOSE SYRUP 20 GM/30 ML CUP PO PRN (15:15)
[2017-04-11] MEDS ORDERED: BISACODYL 10 MG SUPP RECTAL PRN (15:15)
[2017-04-11] MEDS ORDERED: SENNOSIDES 8.6 MG TAB PO PRN (15:15)
[2017-04-11] MEDS ORDERED: NALOXONE HCL 0.4 MG/ML AMP IV PUSH PRN (15:15)
[2017-04-11] MEDS ORDERED: GLUCAGON 1 MG/ML VIAL OTHER PRN (15:15)
[2017-04-11] MEDS ORDERED: SODIUM CHLORIDE 0.9% FLUSH 10 ML FLUSH IV FLUSH PRN (15:15)
[2017-04-11] MEDS ORDERED: ONDANSETRON HCL 4 MG/2 ML VIAL IVP PRN (15:15)
[2017-04-11] MEDS ORDERED: DEXTROSE 50% IN WATER 50 ML VIAL(D50) IV PUSH PRN (15:15)
[2017-04-11] MEDS: SODIUM CHLOR 0.9% 1000 ML INJ 1,000 ML IV SCH (15:22)
[2017-04-11] MEDS ORDERED: ENOXAPARIN SODIUM 40 MG/0.4 ML SYRINGE SQ SCH (16:00)
--- NOTE | 2017-04-11 16:56 | PD.CONS ---
HPI History of Present Illness This is a 67 year old with medical history significant for COPD, DM type 2, CONNELL S/P liver transplantation Nov 2015. Pt presented to the ER today with complaints of nausea and vomiting that started suddenly last night. Pt reports she last vomited a little earlier in the ER and it was bile colored. Denies any continued nausea or emesis during my exam. Denies ever having abdominal pain. Was also having diarrhea yesterday, took an OTC anti-diarrhea which helped. Denies any BRB in stool or melena. Pt had a liver transplant in [place] in Nov 2015, currently on Cyclosporine, she has to receive monthly paracentesis. She is currently on vacation in [place], last paracentesis was Mar 31 prior to traveling. She is also on Furosemide and Spironolactone daily. In November of last year pt was hospitalized for AMS, she does not remember much about the hospitalization but states she was there for six days. She reports there was never a clear cause of the AMS but they did switch her anti-rejection medication to Cyclosporine. Pt denies fever, chills. She is unsure about sick contacts. LFTs in ER as follows: AST-80 ALT-52 Alk phos-124 T bili-1.2. Last EGD was Nov 2015, she states esophageal varices otherwise normal. She is unsure when her last colonoscopy was but states normal exam. Denies ETOH, smoking. (Lora Prasad) PFSH Past Medical History DM II COPD CONNELL Past Surgical History Liver Transplant November 03 2015 Recurrent Paracentesis last one March 31 2017 C Section Cholecystectomy (Lora Prasad) Coded Allergies: Sulfa (Sulfonamide Antibiotics) (Unverified Allergy, Intermediate, BLISTERS IN MOUTH, 04/11/17) Family History Father with esophageal Cancer Sister with Stroke and CHF Mother with CAD Social History Denies any toxic habits. Lives with her , at [place], [place] (Lora Prasad) Review of Systems Gastrointestinal: COMPLAINS OF: Diarrhea, Nausea, Vomiting, Swelling of Abdomen , DENIES: Abdominal pain, Black stools, Bloody stools, Constipation, Difficulty Swallowing, Odynophagia, Heartburn, Hematemesis (Lora Prasad) GI Exam Vitals I&O Vital Signs Date Time Temp Pulse Resp B/P (MAP) Pulse Ox O2 Delivery O2 Flow Rate FiO2 04/11/17 16:04 (102) 04/11/17 11:55 98.1 74 14 165/71 (102) 99 I/O 04/10/17 04/10/17 04/10/17 04/11/17 04/11/17 04/11/17 07:00 15:00 23:00 07:00 15:00 23:00 Intake Total 500 ml Balance 500 ml Intake IV Total 500 ml Imaging Last Impressions Head CT 04/11/17 1219 Signed Impressions: Service Date/Time: Tuesday, April 11, 2017 12:41 - CONCLUSION: No acute disease. Sabra Sexton MD Chest X-Ray 04/11/179 Signed Impressions: Service Date/Time: Tuesday, April 11, 2017 12:51 - CONCLUSION: No acute disease. Sabra Sexton MD Laboratory Test 04/11/17 12:30 04/11/17 13:30 White Blood Count 6.6 TH/MM3 Red Blood Count 3.41 MIL/MM3 Hemoglobin 12.0 GM/DL Hematocrit 36.0 % Mean Corpuscular Volume 105.5 FL Mean Corpuscular Hemoglobin 35.2 PG Mean Corpuscular Hemoglobin Concent 33.3 % Red Cell Distribution Width 15.5 % Platelet Count 113 TH/MM3 Mean Platelet Volume 8.6 FL Neutrophils (%) (Auto) 45.3 % Lymphocytes (%) (Auto) 44.6 % Monocytes (%) (Auto) 7.4 % Eosinophils (%) (Auto) 2.5 % Basophils (%) (Auto) 0.2 % Neutrophils # (Auto) 3.0 TH/MM3 Lymphocytes # (Auto) 3.0 TH/MM3 Monocytes # (Auto) 0.5 TH/MM3 Eosinophils # (Auto) 0.2 TH/MM3 Basophils # (Auto) 0.0 TH/MM3 CBC Comment DIFF FINAL Differential Comment Prothrombin Time 10.9 SEC Prothromb Time International Ratio 1.1 RATIO Activated Partial Thromboplast Time 22.9 SEC Blood Urea Nitrogen 38 MG/DL Creatinine 1.40 MG/DL Random Glucose 178 MG/DL Total Protein 7.8 GM/DL Albumin 3.5 GM/DL Calcium Level 8.2 MG/DL Magnesium Level 2.2 MG/DL Alkaline Phosphatase 124 U/L Aspartate Amino Transf (AST/SGOT) 80 U/L Alanine Aminotransferase (ALT/SGPT) 52 U/L Total Bilirubin 1.2 MG/DL Sodium Level 141 MEQ/L Potassium Level 5.3 MEQ/L Chloride Level 109 MEQ/L Carbon Dioxide Level 24.7 MEQ/L Anion Gap 7 MEQ/L Estimat Glomerular Filtration Rate 38 ML/MIN Lactic Acid Level 1.0 mmol/L Total Creatine Kinase 262 U/L Creatine Kinase MB 1.9 NG/ML Creatine Kinase MB % 0.7 % Troponin I LESS THAN 0.02 NG/ML Lipase LESS THAN 10 U/L Urine Color LIGHT-YELLOW Urine Turbidity CLEAR Urine pH 5.0 Urine Specific [place] 1.011 Urine Protein TRACE mg/dL Urine Glucose (UA) NEG mg/dL Urine Ketones NEG mg/dL Urine Occult Blood NEG Urine Nitrite NEG Urine Bilirubin NEG Urine Urobilinogen LESS THAN 2.0 MG/DL Urine Leukocyte Esterase TRACE Urine RBC 1 /hpf Urine WBC 2 /hpf Urine Squamous Epithelial Cells 1 /hpf Urine Transitional Epithelial Cells <1 /hpf Urine Bacteria RARE /hpf Urine Hyaline Casts 1 /lpf Microscopic Urinalysis Comment CATH-CULTURE IND Date/Time Source Procedure Growth Status 04/11/17 15:30 Blood Peripheral Aerobic Blood Culture Pending Received 04/11/17 15:30 Blood Peripheral Anaerobic Blood Culture Pending Received 04/11/17 12:30 Nasal Washing Influenza Types A,B Antigen (STEFANIE) - Final NEGATIVE FOR FLU A AND B ANTIGEN.... Complete 04/11/17 13:30 Urine Catheterized Urine Urine Culture Pending Received Physical Examination HEENT: Normocephalic; atraumatic CHEST: Even/unlabored CARDIAC: RRR ABDOMEN: Distended, soft, nontender, bowel sounds active. EXTREMITIES: No clubbing, cyanosis, or edema. SKIN: Normal; no rash; no jaundice. WATER POLLUTION SCIENTIST: No focal deficits; alert and oriented times three. (Lora Prasad) Assessment and Plan Plan Assessment - N/V began suddenly last night, subsided about an hour ago in ER. Denies associated abdominal pain. Diarrhea yesterday morning, took OTC anti-diarrhea medication with relief. Denies fever, chills. Unsure of sick contacts. Pt reports relief since receiving fluids. - Abdominal swelling- Gets paracentesis once a month since liver transplant- last one Mar 31 before traveling here on vacation. Also on Spironolactone and Lasix. - History of liver transplant- Nov 2015- Done in [place]- on Cyclosporine since November?- no recent changes to medication- Hospitalized in October for AMS, was found staring at the wall confused, pt reports it was never discovered the reason for the AMS. Ammonia was not found to be elevated - Last EGD Nov 2015- esophageal varices, otherwise normal - Unsure when last colonoscopy was, states normal exam Plan: CT Abdomen and pelvis pending Ammonia level Cyclosporine level Antiemetics as needed Lasix Spironolactone Cyclosporine Lactulose If vomiting returns NGT to LIWS Further recommendations to follow based on clinical course Pt has been seen and examined by myself and Dr. Hameed and this note is written on his behalf (Lora Prasad) Physician Comments Patient seen on 04/11/17 Patient seen and examined Agree with above Continue with current supportive care Monitor labs Await CT of the abdomen (Gerson Hameed MD) Lora Prasad Apr 11, 2017 16:56 Gerson Hameed MD Apr 12, 2017 14:27
[2017-04-11 16:57] VITALS: BP 151/66; PULSE 58; RESP 16; TEMP 97.5; O2SAT 100
[2017-04-11] MEDS: INSULIN ASPART SUPPLEMENTAL SCALE SQ SCH ×2 (17:00→22:28)
--- NOTE | 2017-04-11 17:47 | RADRPT ---
EXAM DATE/TIME: 04/11/2017 17:23 [facility] COMPARISON: No previous studies available for comparison. INDICATIONS : Nausea and vomiting X one day. ORAL CONTRAST: No oral contrast ingested. RADIATION DOSE: 14.97 CTDIvol (mGy) MEDICAL HISTORY : Diabetes mellitus type 1. Chronic obstructive pulmonary disease. Hepatitis. SURGICAL HISTORY : Cholecystectomy. section.Liver transplant ENCOUNTER: Initial ACUITY: 1 day PAIN SCALE: 5/10 LOCATION: abdomen TECHNIQUE: Volumetric scanning of the abdomen and pelvis was performed. Using automated exposure control and ad justment of the mA and/or kV according to patient size, radiation dose was kept as low as reasonably achievable to obtain optimal diagnostic quality images. DICOM format image data is available electro nically for review and comparison. FINDINGS: The lung bases are clear. There is extensive degenerative change of lumbar spine degenerative disc di sease narrowing air vacuum sign L3-4 and L4-5 with some degree of spurring and facet arthritic change s in the lower lumbar spine. No evidence of fracture or destructive change. The major retroperitoneal vascular pelvic inguinal femoral vascular structures are normal other than extensive atherosclerotic vascular calcifications. There is a metallic abnormality anterior to the upper pole left kidney post erior to the gastric fundus which is potentially in the region adrenal gland of indeterminate etiolog y and significance. The liver is homogeneous without enlargement the spleen measures 13.5 cm in verti shahab height. The kidneys are normal bilaterally as is the area of the pancreas. Bowel distribution is benign. There is extensive ascitic fluid throughout the abdomen extending into the pelvis. There is a large defect in the lateral right ab dominal wall at or just above the iliac rim level with ascitic fluid within this and some protrusion of bowel. This represents a hernia. CONCLUSION: Large amount of ascitic fluid throughout the abdomen and pelvis. Large defect in the right lateral abdominal wall with ascitic fluid protruding through this as well as small amount of bowel, representing a hernia. There is a metallic radiopaque foreign body just ante rior to the upper pole the left kidney and posterior to the stomach gastric fundus which may be in a potential region of the adrenal gland. Its etiology and significance is indeterminate. Normal bowel distribution with no evidence of obstru ction Maykel Cabrales MD on April 11, 2017 at 17:36 Board Certified Radiologist. This report was verified electronically.
[2017-04-11] MEDS: SUCRALFATE 1 GM TAB PO SCH ×2 (17:51→22:08)
[2017-04-11] MEDS: FAMOTIDINE 20 MG/2 ML VIAL IV PUSH SCH (17:51)
[2017-04-11 19:42] VITALS: BP 171/74; PULSE 67; RESP 17; TEMP 98.2; O2SAT 98
[2017-04-11 19:42] LABS: TROPONIN I LESS THAN 0.02 NG/ML (0.02-0.05)
[2017-04-11] MEDS ORDERED: INSULIN GLARGINE 1,000 UNITS/10 ML VIAL SQ SCH (21:00)
[2017-04-11] MEDS: guaiFENesin E.R. 600 MG TAB PO SCH (22:08)
[2017-04-11] MEDS: SODIUM CHLORIDE 0.9% FLUSH 10 ML FLUSH IV FLUSH SCH (22:10)
[2017-04-11 22:56] VITALS: O2SAT 99
[2017-04-11] MEDS: RESP: ALBUTEROL 2.5 MG/IPRATROPIUM 0.5 MG NEB (SCH) NEB (22:58)
[2017-04-11 23:43] VITALS: BP 139/65; PULSE 65; RESP 17; TEMP 98.4; O2SAT 96
[2017-04-12] VITALS (9 sets, daily range): BP systolic 117–188; BP diastolic 57–79; PULSE 60–72; RESP 16–20; TEMP 97.4–98.4; O2SAT 97–100
[2017-04-12] MEDS: cycloSPORINE 100 MG CAP PO SCH ×3 (00:07→20:31)
[2017-04-12 02:27] LABS: CHOLESTEROL 144 MG/DL (120-200); TRIGLYCERIDES 102 MG/DL (42-150)
[2017-04-12 02:52] LABS: CHOLESTEROL/ HDL RATIO 2.92 RATIO; FOLATE 16.4 NG/ML (3.1-17.5); FREE T4 0.82 NG/DL (0.76-1.46); HDL CHOLESTEROL 49.3 MG/DL (40.0-60.0); LDL CHOLESTEROL 74 MG/DL (0-99); TROPONIN I LESS THAN 0.02 NG/ML (0.02-0.05)
[2017-04-12] MEDS: RESP: ALBUTEROL 2.5 MG/IPRATROPIUM 0.5 MG NEB (SCH) NEB ×6 (03:50→23:48)
[2017-04-12] MEDS: FAMOTIDINE 20 MG/2 ML VIAL IV PUSH SCH ×2 (05:09→16:52)
[2017-04-12] MEDS: SODIUM CHLOR 0.9% 1000 ML INJ 1,000 ML IV SCH ×2 (05:22→17:46)
[2017-04-12 07:02] LABS: EOSINOPHIL # 0.1 TH/MM3 (0-0.4); EOSINOPHIL % 3.2 % (0.0-4.0); HEMATOCRIT 29.3 % (35.0-46.0); LYMPH % 64.2 % (9.0-44.0); LYMPHOCYTE # 2.8 TH/MM3 (1.0-4.8); MEAN CELL VOLUME 106.1 FL (80.0-100.0); MEAN CORPUSCULAR HEMOGLOBIN 36.1 PG (27.0-34.0); MEAN PLATELET VOLUME 8.4 FL (7.0-11.0); MONO % 9.8 % (0.0-8.0); MONOCYTE # 0.4 TH/MM3 (0-0.9); NEUT % 22.8 % (16.0-70.0); PLATELET COUNT 80 TH/MM3 (150-450); RED BLOOD COUNT 2.76 MIL/MM3 (4.00-5.30); RED CELL DISTRIBUTION WIDTH 15.4 % (11.6-17.2); WHITE BLOOD COUNT 4.4 TH/MM3 (4.0-11.0)
[2017-04-12 07:35] LABS: ALBUMIN 2.9 GM/DL (3.4-5.0); ALKALINE PHOSPHATASE 80 U/L (45-117); ALT (GPT) 35 U/L (10-53); AST (GOT) 37 U/L (15-37); BICARBONATE 24.8 MEQ/L (21.0-32.0); BLOOD UREA NITROGEN 30 MG/DL (7-18); CALCIUM 7.8 MG/DL (8.5-10.1); CHLORIDE 107 MEQ/L (98-107); CREATININE 1.19 MG/DL (0.50-1.00); GLOMERULAR FILTRATION RATE 46 ML/MIN (>89); GLUCOSE,RANDOM 137 MG/DL (74-106); SODIUM (NA) 141 MEQ/L (136-145); TOTAL BILIRUBIN ADULT 1.4 MG/DL (0.2-1.0); TOTAL PROTEIN 6.1 GM/DL (6.4-8.2)
[2017-04-12] MEDS: INSULIN ASPART SUPPLEMENTAL SCALE SQ SCH ×4 (08:00→21:00)
[2017-04-12] MEDS: SUCRALFATE 1 GM TAB PO SCH ×4 (08:00→20:31)
[2017-04-12] MEDS: FUROSEMIDE 40 MG TAB PO SCH (08:30)
[2017-04-12] MEDS: guaiFENesin E.R. 600 MG TAB PO SCH ×2 (08:30→20:31)
[2017-04-12] MEDS: SODIUM CHLORIDE 0.9% FLUSH 10 ML FLUSH IV FLUSH SCH ×2 (08:31→20:32)
[2017-04-12] MEDS: SPIRONOLACTONE 50 MG TAB PO SCH (08:31)
[2017-04-12] MEDS: ASPIRIN 81 MG CHEW TAB CHEW SCH (08:31)
[2017-04-12 08:50] LABS: OVALOCYTES 1+ (NORMAL)
[2017-04-12] MEDS ORDERED: HEPARIN SODIUM - SQ 10,000 UNITS/ML VIAL SQ SCH (09:00)
--- NOTE | 2017-04-12 09:56 | HHI.PR ---
Subjective Remarks Follow up for abdominal pain, nausea/vomiting. The patient reports feeling slightly better. Still with abdominal distention and discomfort. No nausea/ vomiting. Denies any fevers/chills. Tolerating oral intake. She has no other medical complaints at this time. Objective Vitals Vital Signs Date Time Temp Pulse Resp B/P (MAP) Pulse Ox O2 Delivery O2 Flow Rate FiO2 04/12/17 08:01 98.3 65 20 156/69 (98) 98 04/12/17 07:53 97 04/11/17 23:43 98.4 65 17 139/65 (89) 96 04/11/17 22:56 99 21 04/11/17 19:42 98.2 67 17 171/74 (106) 98 04/11/17 16:57 97.5 58 16 151/66 (94) 100 04/11/17 16:04 (102) 04/11/17 11:55 98.1 74 14 165/71 (102) 99 I/O 04/11/17 04/11/17 04/11/17 04/12/17 04/12/17 04/12/17 07:00 15:00 23:00 07:00 15:00 23:00 Intake Total 500 ml Balance 500 ml Intake IV Total 500 ml Result Diagram: 04/12/17 0620 04/12/17 0620 Imaging Last Impressions Head CT 04/11/17 1219 Signed Impressions: Service Date/Time: Tuesday, April 11, 2017 12:41 - CONCLUSION: No acute disease. Sabra Sexton MD Chest X-Ray 04/11/17 1219 Signed Impressions: Service Date/Time: Tuesday, April 11, 2017 12:51 - CONCLUSION: No acute disease. Sabra Sexton MD Abdomen/Pelvis CT 04/11/17 0000 Signed Impressions: Service Date/Time: Tuesday, April 11, 2017 17:23 - CONCLUSION: Large amount of ascitic fluid throughout the abdomen and pelvis. Large defect in the right lateral abdominal wall with ascitic fluid protruding through this as well as small amount of bowel, representing a hernia. There is a metallic radiopaque foreign body just anterior to the upper pole the left kidney and posterior to the stomach gastric fundus which may be in a potential region of the adrenal gland. Its etiology and significance is indeterminate. Normal bowel distribution with no evidence of obstruction Maykel Cabrales MD Objective Remarks GENERAL: Well-nourished, well-developed pleasant female patient in NAD. SKIN: Warm and dry. No rash. HEENT: Normocephalic. Atraumatic.Pupils equal and round. Mucous membranes pink and moist. CARDIOVASCULAR: Regular rate and rhythm. S1, S2 noted. No murmur appreciated. RESPIRATORY: No accessory muscle use. Clear to auscultation. Breath sounds equal bilaterally. GASTROINTESTINAL: Abdomen soft, distended with positive fluid wave; incisional hernia at right abdominal wall without evidence of incarceration. Normoactive bowel sounds x4. MUSCULOSKELETAL: No obvious deformities. Extremities without clubbing, cyanosis , or edema. NEUROLOGICAL: Awake and alert. No obvious cranial nerve deficits. Motor grossly within normal limits. Normal speech. PSYCHIATRIC: Appropriate mood and affect; insight and judgment normal. Medications and IVs Current Medications Medications (Trade) Dose Ordered Sig/Jaqueline Route Start Time Stop Time Status Last Admin Sodium Chloride 1,000 ml @ 100 mls/hr Q10H IV 04/11/17 15:00 04/12/17 05:22 (NS Flush) 2 ml UNSCH PRN IV FLUSH 04/11/17 15:15 (NS Flush) 2 ml BID IV FLUSH 04/11/17 21:00 04/11/17 22:10 (Zofran Inj) 4 mg Q6H PRN IVP 04/11/17 15:15 (Narcan Inj) 0.4 mg UNSCH PRN IV PUSH 04/11/17 15:15 (Senokot) 17.2 mg Q12H PRN PO 04/11/17 15:15 (Dulcolax Supp) 10 mg DAILY PRN RECTAL 04/11/17 15:15 (Lactulose Liq) 30 ml DAILY PRN PO 04/11/17 15:15 (NovoLOG SUPPLEMENTAL SCALE) 1 ACHS SLIDING SCALE SQ 04/11/17 17:00 04/12/17 12:00 (Aspirin Chew) 81 mg DAILY CHEW 04/12/17 09:00 04/12/17 08:31 (SandIMMUNE) 100 mg BID PO 04/11/17 21:00 04/12/17 08:31 (Lasix) 40 mg DAILY PO 04/12/17 09:00 04/12/17 08:30 (D50w (Vial) Inj) 50 ml UNSCH PRN IV PUSH 04/11/17 15:15 (Glucagon Inj) 1 mg UNSCH PRN OTHER 04/11/17 15:15 (Duoneb Neb) 1 ampule Q4HR NEB NEB 04/11/17 16:00 04/12/17 07:51 (Mucinex Er) 600 mg BID PO 04/11/17 21:00 04/12/17 08:30 (Heparin Inj) 5,000 units Q12HR SQ 04/12/17 09:00 04/12/17 08:32 (Carafate) 1 gm ACHS PO 04/11/17 17:00 04/12/17 12:38 (Pepcid Inj) 10 mg Q12H IV PUSH 04/11/17 16:00 04/12/17 05:09 (Aldactone) 50 mg DAILY PO 04/12/17 09:00 04/12/17 08:31 A/P Problem List: (1) Ascites ICD Code: R18.8 - Other ascites Status: Acute (2) TRICIA (acute kidney injury) ICD Code: N17.9 - Acute kidney failure, unspecified Status: Acute Assessment and Plan 67-year-old female with history of DM, CONNELL, s/p Liver Transplant 2 years ago, COPD, presents with acute onset abdominal pain, nausea/vomiting. Abdominal Pain/Nausea/Vomiting: suspect secondary to significant ascites. Afebrile, no leukocytosis. Hx of requiring recurrent paracentesis, most recently 03/31. Ammonia wnl. -CT abd/pelvis images reviewed, shows large amount of ascitic fluid through the abdomen and pelvis; large hernia defect in the right lateral abdominal wall with ascitic fluid protruding through and small about of bowel. -GI Consulted -Continue patient's cyclosporine, spironolactone, and lasix -Supportive treatment with IVF hydration, pain control and antiemetics prn -plan for US guided paracentesis Anemia: Hgb dropped from 12.0 to 10.0 overnight, suspect secondary to hemodilutional, patient dehydrated upon arrival -no active signs of bleeding -continue to monitor CBC TRICIA: Cr 1.40 upon arrival, suspect secondary to dehydration with recent vomiting -given IVF hydration -repeat labs show improvement with Cr 1.19 -avoid nephrotoxins -monitor COPD: chronic, stable, does not appear to be in exacerbation -francesonebs q4h Diabetes Mellitus: chronic -patient now tolerating oral intake and BG increased to 298, will give levemir 10u (patient on 18u at home however only on liquid diet currently) -monitor Accu-checks and cover with SSI -HgbA1c pending DVT Prophylaxis: teds/SCDs; holding heparin with upcoming paracentesis Discharge Planning Likely discharge tomorrow after paracentesis if patient continues to tolerate oral intake. Vianey Crespo PA-C Apr 12, 2017 9:55 am
--- NOTE | 2017-04-12 10:57 | HHI.GIFU ---
Subjective Remarks Pt resting in bed, no nausea or vomiting over night. Tolerating diet. (Lora Prasad) Objective Vitals I&O Vital Signs Date Time Temp Pulse Resp B/P (MAP) Pulse Ox O2 Delivery O2 Flow Rate FiO2 04/12/17 08:01 98.3 65 20 156/69 (98) 98 04/12/17 07:53 97 04/11/17 23:43 98.4 65 17 139/65 (89) 96 04/11/17 22:56 99 21 04/11/17 19:42 98.2 67 17 171/74 (106) 98 04/11/17 16:57 97.5 58 16 151/66 (94) 100 04/11/17 16:04 (102) 04/11/17 11:55 98.1 74 14 165/71 (102) 99 I/O 04/11/17 04/11/17 04/11/17 04/12/17 04/12/17 04/12/17 07:00 15:00 23:00 07:00 15:00 23:00 Intake Total 500 ml Balance 500 ml Intake IV Total 500 ml # Voids 1 Laboratory Laboratory Tests Test 04/11/17 12:30 04/11/17 13:30 04/11/17 19:00 04/11/17 19:06 White Blood Count 6.6 Red Blood Count 3.41 Hemoglobin 12.0 Hematocrit 36.0 Mean Corpuscular Volume 105.5 Mean Corpuscular Hemoglobin 35.2 Mean Corpuscular Hemoglobin Concent 33.3 Red Cell Distribution Width 15.5 Platelet Count 113 Mean Platelet Volume 8.6 Neutrophils (%) (Auto) 45.3 Lymphocytes (%) (Auto) 44.6 Monocytes (%) (Auto) 7.4 Eosinophils (%) (Auto) 2.5 Basophils (%) (Auto) 0.2 Neutrophils # (Auto) 3.0 Lymphocytes # (Auto) 3.0 Monocytes # (Auto) 0.5 Eosinophils # (Auto) 0.2 Basophils # (Auto) 0.0 CBC Comment DIFF FINAL Differential Comment Prothrombin Time 10.9 Prothromb Time International Ratio 1.1 Activated Partial Thromboplast Time 22.9 Blood Urea Nitrogen 38 Creatinine 1.40 Random Glucose 178 Total Protein 7.8 Albumin 3.5 Calcium Level 8.2 Magnesium Level 2.2 Alkaline Phosphatase 124 Aspartate Amino Transf (AST/SGOT) 80 Alanine Aminotransferase (ALT/SGPT) 52 Total Bilirubin 1.2 Sodium Level 141 Potassium Level 5.3 Chloride Level 109 Carbon Dioxide Level 24.7 Anion Gap 7 Estimat Glomerular Filtration Rate 38 Lactic Acid Level 1.0 Total Creatine Kinase 262 154 Creatine Kinase MB 1.9 Creatine Kinase MB % 0.7 Troponin I LESS THAN 0.02 LESS THAN 0.02 Lipase LESS THAN 10 Urine Color LIGHT-YELLOW Urine Turbidity CLEAR Urine pH 5.0 Urine Specific [place] 1.011 Urine Protein TRACE Urine Glucose (UA) NEG Urine Ketones NEG Urine Occult Blood NEG Urine Nitrite NEG Urine Bilirubin NEG Urine Urobilinogen LESS THAN 2.0 Urine Leukocyte Esterase TRACE Urine RBC 1 Urine WBC 2 Urine Squamous Epithelial Cells 1 Urine Transitional Epithelial Cells <1 Urine Bacteria RARE Urine Hyaline Casts 1 Microscopic Urinalysis Comment CATH-CULTURE IND Ammonia 12 Test 04/12/17 01:22 04/12/17 06:20 Total Creatine Kinase 123 Troponin I LESS THAN 0.02 Triglycerides Level 102 Cholesterol Level 144 LDL Cholesterol 74 HDL Cholesterol 49.3 Cholesterol/HDL Ratio 2.92 Vitamin B12 Level 1271 Folate 16.4 Free Thyroxine 0.82 Thyroid Stimulating Hormone 3rd Gen 1.490 White Blood Count 4.4 Red Blood Count 2.76 Hemoglobin 10.0 Hematocrit 29.3 Mean Corpuscular Volume 106.1 Mean Corpuscular Hemoglobin 36.1 Mean Corpuscular Hemoglobin Concent 34.0 Red Cell Distribution Width 15.4 Platelet Count 80 Mean Platelet Volume 8.4 Neutrophils (%) (Auto) 22.8 Lymphocytes (%) (Auto) 64.2 Monocytes (%) (Auto) 9.8 Eosinophils (%) (Auto) 3.2 Basophils (%) (Auto) 0.0 Neutrophils # (Auto) 1.0 Lymphocytes # (Auto) 2.8 Monocytes # (Auto) 0.4 Eosinophils # (Auto) 0.1 Basophils # (Auto) 0.0 CBC Comment AUTO DIFF Differential Comment AUTO DIFF CONFIRMED Platelet Estimate LOW Platelet Morphology Comment NORMAL Ovalocytes 1+ Blood Urea Nitrogen 30 Creatinine 1.19 Random Glucose 137 Total Protein 6.1 Albumin 2.9 Calcium Level 7.8 Alkaline Phosphatase 80 Aspartate Amino Transf (AST/SGOT) 37 Alanine Aminotransferase (ALT/SGPT) 35 Total Bilirubin 1.4 Sodium Level 141 Potassium Level 4.2 Chloride Level 107 Carbon Dioxide Level 24.8 Anion Gap 9 Estimat Glomerular Filtration Rate 46 Date/Time Source Procedure Growth Status 04/11/17 15:30 Blood Peripheral Aerobic Blood Culture Pending Received 04/11/17 15:30 Blood Peripheral Anaerobic Blood Culture Pending Received 04/11/17 12:30 Nasal Washing Influenza Types A,B Antigen (STEFANIE) - Final NEGATIVE FOR FLU A AND B ANTIGEN.... Complete 04/11/17 13:30 Urine Catheterized Urine Urine Culture Pending Received Imaging Last Impressions Head CT 04/11/17 1219 Signed Impressions: Service Date/Time: Tuesday, April 11, 2017 12:41 - CONCLUSION: No acute disease. Sabra Sexton MD Chest X-Ray 04/11/17 1219 Signed Impressions: Service Date/Time: Tuesday, April 11, 2017 12:51 - CONCLUSION: No acute disease. Sabra Sexton MD Abdomen/Pelvis CT 04/11/17 0000 Signed Impressions: Service Date/Time: Tuesday, April 11, 2017 17:23 - CONCLUSION: Large amount of ascitic fluid throughout the abdomen and pelvis. Large defect in the right lateral abdominal wall with ascitic fluid protruding through this as well as small amount of bowel, representing a hernia. There is a metallic radiopaque foreign body just anterior to the upper pole the left kidney and posterior to the stomach gastric fundus which may be in a potential region of the adrenal gland. Its etiology and significance is indeterminate. Normal bowel distribution with no evidence of obstruction Maykel Cabrales MD Physical Exam HEENT: Normocephalic; atraumatic CHEST: Even/unlabored CARDIAC: RRR ABDOMEN: Distended, soft, nontender, bowel sounds active. Incisional hernia R side of abdomen EXTREMITIES: No clubbing, cyanosis, or edema. PATIENT SERVICES SPECIALIST: No focal deficits; alert and oriented times three. (Lora Prasad) Assessment and Plan Plan Assessment - N/V began suddenly last night, subsided about an hour ago in ER. Denies associated abdominal pain. Diarrhea yesterday morning, took OTC anti-diarrhea medication with relief. Denies fever, chills. Unsure of sick contacts. Pt reports relief since receiving fluids. - Abdominal swelling- Gets paracentesis once a month since liver transplant- last one Mar 31 before traveling here on vacation. Also on Spironolactone and Lasix. - History of liver transplant- Nov 2015- Done in [place]- on Cyclosporine since November?- no recent changes to medication- Hospitalized in October for AMS, was found staring at the wall confused, pt reports it was never discovered the reason for the AMS. Ammonia was not found to be elevated - Last EGD Nov 2015- esophageal varices, otherwise normal - Unsure when last colonoscopy was, states normal exam (04/12) --> No nausea and vomiting over night. Tolerating diet. Ammonia level WNL. CT abdomen and pelvis (04/11) --> Large amount of ascitic fluid throughout the abdomen and pelvis. Large defect in the right lateral abdominal wall with ascitic fluid protruding through this as well as small amount of bowel. (Pt with known incisional hernia). There is a metallic radiopaque foreign body just anterior to the upper pole the left kidney and posterior to the stomach gastric fundus which mas be in a potential region of the adrenal gland. Its etiology and significance is indeterminate. (no previous imaging to compare). Normal bowel distribution with no evidence of obstruction. Will plan for paracentesis. Cyclosporine level still pending. LFTs now WNL. Drop in H/H noted, possibly somewhat dilutional. Has been on IVF 100mL/hr. Also has decreased renal function. Started on Heparin this morning, no obvious GIB. Plan: Cyclosporine level pending Spironolactone Lasix Monitor LFTs Diagnostic and therapeutic paracentesis Monitor H/H Notify GI of active bleeding Pt has been seen and examined by myself and Dr. Hameed and this note is written on his behalf (Lora rPasad) Physician Comments Patient seen and examined Agree with above Continue with current supportive care Monitor labs Patient with a complex situation post-liver transplant of over a year but who appears to show signs of portal hypertension Etiology of ascites not clear to me at this point but we will continue with treatment plan as outlined by her transplant team Her cyclosporine level appears to be appropriate We'll attempt to obtain records from transplant center (Gerson Hameed MD) Lora Prasad Apr 12, 2017 10:57 Gerson Hameed MD Apr 12, 2017 19:09
[2017-04-12 12:58] LABS: HEMOGLOBIN A1C 8.2 % (4.3-6.0)
[2017-04-12] MEDS ORDERED: INSULIN DETEMIR 100 UNITS/ML VIAL SQ ONE (14:00)
[2017-04-12 14:08] LABS: HEMATOCRIT 31.3 % (35.0-46.0); HEMOGLOBIN 10.4 GM/DL (11.6-15.3); MEAN CORPUSCULAR HEMOGLOBIN 35.7 PG (27.0-34.0); MEAN CORPUSCULAR HGB CONC 33.3 % (32.0-36.0); MEAN PLATELET VOLUME 8.2 FL (7.0-11.0); PLATELET COUNT 77 TH/MM3 (150-450); RED BLOOD COUNT 2.92 MIL/MM3 (4.00-5.30); RED CELL DISTRIBUTION WIDTH 15.4 % (11.6-17.2); WHITE BLOOD COUNT 3.7 TH/MM3 (4.0-11.0)
[2017-04-12 14:13] LABS: INTERNATIONAL NORMALIZED RATIO 1.1 RATIO; PROTHROMBIN TIME - PATIENT 11.5 SEC (9.8-11.6)
[2017-04-12 14:29] LABS: TOTAL PROTEIN 6.5 GM/DL (6.4-8.2)
[2017-04-12] MEDS ORDERED: LIDOCAINE HCL 1% 20 ML VIAL ONE (14:49)
[2017-04-12 14:54] LABS: CYCLOSPORINE 435 COMMENT
--- NOTE | 2017-04-12 16:03 | RADRPT ---
EXAM DATE/TIME: 04/12/2017 13:09 [facility] COMPARISON: US GUIDED ABD PARACENTESIS, April 23, 2016, 14:29. INDICATIONS : Ascites. Intra-procedural antibiotics were given as prescribed above. MEDICAL HISTORY : Chronic obstructive pulmonary disease. Diabetic. SURGICAL HISTORY : Liver transplant. Cholecystectomy. section. ENCOUNTER: Subsequent ACUITY: 1 day PAIN SCORE: 0/10 LOCATION: Left lower quadrant FLUID: Total volume of 3200 cc of clear pale red fluid was removed. Fluid was sent to lab for ordered studies. Post procedure scanning reveals no hematoma or other complication. TECHNIQUE: 1. Ultrasound guidance for abdominal paracentesis. 2. Paracentesis. The risks, benefits, and alternatives to ultrasound guided paracentesis were explained to the patient in detail including the risk of bleeding and infection. Written and verbal informed consent was obt ained. With the patient on the ultrasound table, ultrasound imaging was used to select the most appropriate approach for paracentesis. Overlying skin was prepped and draped in the usual sterile fashion and wi th a local anesthetic, a dermatotomy was made with an 11 blade scalpel. A 6 [place] [id number] ca theter was introduced into the peritoneal cavity and fluid was collected. The patient tolerated the procedure well and left the ultrasound suite in stable condition. CONCLUSION: Uncomplicated ultrasound guided paracentesis. Eber Hernández MD on April 12, 2017 at 15:59 Board Certified Radiologist. This report was verified electronically.
[2017-04-12] MEDS ORDERED: cloNIDine HCL 0.1 MG TAB PO PRN (17:15)
[2017-04-12 17:30] LABS: TOTAL PROTEIN,PERITONEAL FLUID 3.2 GM/DL
--- NOTE | 2017-04-12 17:44 | EKG ---
Date Performed: 04/11/2017 Time Performed: 12:30:31 PTAGE: 67 years EKG: Sinus rhythm RIGHT BUNDLE BRANCH BLOCK LEFT ANTERIOR FASCICULAR BLOCK POSSIBLE SEPTAL MYOCARDIAL INFARCTION ABNOR MAL ECG Since the prior tracing, there has been no significant change DOCTOR: Xavier Trotter Interpretating Date/Time 04/12/2017 17:42:29
[2017-04-12 19:16] LABS: PERITONEAL RBC 8203 /MM3 (0-0)
[2017-04-12 19:17] LABS: PERITONEAL LYMPHS 97 %; PERITONEAL POLYS(SEGS) 3 %
[2017-04-12] MEDS ORDERED: GABA300C5 PO ×2 (21:10)
[2017-04-12] MEDS ORDERED: GABAPENTIN 300 MG CAP PO SCH (21:15)
[2017-04-13] MEDS: RESP: ALBUTEROL 2.5 MG/IPRATROPIUM 0.5 MG NEB (SCH) NEB ×2 (03:15→08:06)
[2017-04-13 03:20] VITALS: BP 130/65; PULSE 65; RESP 16; TEMP 98.1; O2SAT 98
[2017-04-13] MEDS: FAMOTIDINE 20 MG/2 ML VIAL IV PUSH SCH (04:18)
[2017-04-13] MEDS: SODIUM CHLOR 0.9% 1000 ML INJ 1,000 ML IV SCH (04:19)
[2017-04-13 04:58] VITALS: RESP 18; TEMP 96.6
[2017-04-13 07:34] VITALS: BP 118/56; PULSE 56; RESP 20; TEMP 97.8; O2SAT 94
[2017-04-13 07:54] VITALS: PULSE 81
[2017-04-13] MEDS: INSULIN ASPART SUPPLEMENTAL SCALE SQ SCH (08:00)
[2017-04-13] MEDS: guaiFENesin E.R. 600 MG TAB PO SCH (08:55)
[2017-04-13] MEDS: SUCRALFATE 1 GM TAB PO SCH (08:55)
[2017-04-13] MEDS: cycloSPORINE 100 MG CAP PO SCH (08:55)
[2017-04-13] MEDS: FUROSEMIDE 40 MG TAB PO SCH (08:56)
[2017-04-13] MEDS: ASPIRIN 81 MG CHEW TAB CHEW SCH (08:56)
[2017-04-13] MEDS: SODIUM CHLORIDE 0.9% FLUSH 10 ML FLUSH IV FLUSH SCH (08:58)
[2017-04-13] MEDS: SPIRONOLACTONE 50 MG TAB PO SCH (08:58)
--- NOTE | 2017-04-13 09:56 | HHI.PR ---
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 Per patient she's had episodes like this in the past, treated last time for UTI with Ciprofloxacin, She does get paracentesis every month and had one about 2 weeks ago with no issues. She denies any chest pain or shortness of breath. Per patient when she vomits she vomits phlegm. No blood. No blood in the stool or urine or throw up. Denies any cold-like symptoms. No fevers chills or sweats. She does state feeling somewhat tired more weak than her usual. noted some weight gain due to that she is eating more and also Abdominal hernia after transplant. Patient seen in Emergency room in the presence of her Mr. Brad Rand, she had her Liver Transplant on November 03 2015 at [place], [place], by Transplant Specialist Doctor Deedee Hollins, she states that came for vacation to this area, from the last day started with Nausea, vomit but no diarrhea, does not have appetite and does not want to eat anything, had dizziness and generalized numbness, denies any chest pain, her EKG reviewed and has some ischemic changes. Troponin within normal limits will continue titration of Cardiac enzymes and Cardiac monitoring. 2-11 HAD PARACENTESIS 2-12 IMPROVED WANTS TO GO HOME DW GI WHO HAS CLEARED HER FOR DISCHARGE DC TO HOME TODAY FOLLOW UP WITH GI 1-2 WEEKS Objective Vitals Vital Signs Date Time Temp Pulse Resp B/P (MAP) Pulse Ox O2 Delivery O2 Flow Rate FiO2 04/13/17 08:06 21 04/13/17 07:54 81 04/13/17 07:34 97.8 56 20 118/56 (76) 94 04/13/17 04:58 96.6 18 04/13/17 03:20 98.1 65 16 130/65 (86) 98 04/12/17 23:19 98.0 62 16 130/59 (82) 98 04/12/17 20:38 97.4 64 18 134/62 (86) 98 04/12/17 19:36 99 21 04/12/17 18:36 117/57 (77) 04/12/17 16:29 68 04/12/17 16:01 98.4 60 18 188/79 (115) 100 04/12/17 11:52 97.7 72 18 152/70 (97) 99 I/O 04/12/17 04/12/17 04/12/17 04/13/17 04/13/17 04/13/17 07:00 15:00 23:00 07:00 15:00 23:00 Output Total 550 ml Balance -550 ml Output Urine Total 550 ml # Voids 1 Result Diagram: 04/12/17 1315 04/12/17 0620 Other Results Laboratory Tests Test 04/11/17 12:30 04/11/17 13:30 04/11/17 19:00 04/11/17 19:06 White Blood Count 6.6 TH/MM3 Red Blood Count 3.41 MIL/MM3 Hemoglobin 12.0 GM/DL Hematocrit 36.0 % Mean Corpuscular Volume 105.5 FL Mean Corpuscular Hemoglobin 35.2 PG Mean Corpuscular Hemoglobin Concent 33.3 % Red Cell Distribution Width 15.5 % Platelet Count 113 TH/MM3 Mean Platelet Volume 8.6 FL Neutrophils (%) (Auto) 45.3 % Lymphocytes (%) (Auto) 44.6 % Monocytes (%) (Auto) 7.4 % Eosinophils (%) (Auto) 2.5 % Basophils (%) (Auto) 0.2 % Neutrophils # (Auto) 3.0 TH/MM3 Lymphocytes # (Auto) 3.0 TH/MM3 Monocytes # (Auto) 0.5 TH/MM3 Eosinophils # (Auto) 0.2 TH/MM3 Basophils # (Auto) 0.0 TH/MM3 CBC Comment DIFF FINAL Differential Comment Prothrombin Time 10.9 SEC Prothromb Time International Ratio 1.1 RATIO Activated Partial Thromboplast Time 22.9 SEC Blood Urea Nitrogen 38 MG/DL Creatinine 1.40 MG/DL Random Glucose 178 MG/DL Total Protein 7.8 GM/DL Albumin 3.5 GM/DL Calcium Level 8.2 MG/DL Magnesium Level 2.2 MG/DL Alkaline Phosphatase 124 U/L Aspartate Amino Transf (AST/SGOT) 80 U/L Alanine Aminotransferase (ALT/SGPT) 52 U/L Total Bilirubin 1.2 MG/DL Sodium Level 141 MEQ/L Potassium Level 5.3 MEQ/L Chloride Level 109 MEQ/L Carbon Dioxide Level 24.7 MEQ/L Anion Gap 7 MEQ/L Estimat Glomerular Filtration Rate 38 ML/MIN Lactic Acid Level 1.0 mmol/L Total Creatine Kinase 262 U/L 154 U/L Creatine Kinase MB 1.9 NG/ML Creatine Kinase MB % 0.7 % Troponin I LESS THAN 0.02 NG/ML LESS THAN 0.02 NG/ML Lipase LESS THAN 10 U/L Urine Color LIGHT-YELLOW Urine Turbidity CLEAR Urine pH 5.0 Urine Specific [place] 1.011 Urine Protein TRACE mg/dL Urine Glucose (UA) NEG mg/dL Urine Ketones NEG mg/dL Urine Occult Blood NEG Urine Nitrite NEG Urine Bilirubin NEG Urine Urobilinogen LESS THAN 2.0 MG/DL Urine Leukocyte Esterase TRACE Urine RBC 1 /hpf Urine WBC 2 /hpf Urine Squamous Epithelial Cells 1 /hpf Urine Transitional Epithelial Cells <1 /hpf Urine Bacteria RARE /hpf Urine Hyaline Casts 1 /lpf Microscopic Urinalysis Comment CATH-CULTURE IND Ammonia 12 MCMOL/L Test 04/12/17 01:22 04/12/17 06:20 04/12/17 13:15 04/12/17 13:18 Hemoglobin A1c 8.2 % Total Creatine Kinase 123 U/L Troponin I LESS THAN 0.02 NG/ML Triglycerides Level 102 MG/DL Cholesterol Level 144 MG/DL LDL Cholesterol 74 MG/DL HDL Cholesterol 49.3 MG/DL Cholesterol/HDL Ratio 2.92 RATIO Vitamin B12 Level 1271 PG/ML Folate 16.4 NG/ML Free Thyroxine 0.82 NG/DL Thyroid Stimulating Hormone 3rd Gen 1.490 uIU/ML Cyclosporine Level 435 COMMENT White Blood Count 4.4 TH/MM3 3.7 TH/MM3 Red Blood Count 2.76 MIL/MM3 2.92 MIL/MM3 Hemoglobin 10.0 GM/DL 10.4 GM/DL Hematocrit 29.3 % 31.3 % Mean Corpuscular Volume 106.1 FL 107.0 FL Mean Corpuscular Hemoglobin 36.1 PG 35.7 PG Mean Corpuscular Hemoglobin Concent 34.0 % 33.3 % Red Cell Distribution Width 15.4 % 15.4 % Platelet Count 80 TH/MM3 77 TH/MM3 Mean Platelet Volume 8.4 FL 8.2 FL Neutrophils (%) (Auto) 22.8 % Lymphocytes (%) (Auto) 64.2 % Monocytes (%) (Auto) 9.8 % Eosinophils (%) (Auto) 3.2 % Basophils (%) (Auto) 0.0 % Neutrophils # (Auto) 1.0 TH/MM3 Lymphocytes # (Auto) 2.8 TH/MM3 Monocytes # (Auto) 0.4 TH/MM3 Eosinophils # (Auto) 0.1 TH/MM3 Basophils # (Auto) 0.0 TH/MM3 CBC Comment AUTO DIFF Differential Comment AUTO DIFF CONFIRMED Platelet Estimate LOW Platelet Morphology Comment NORMAL Ovalocytes 1+ Blood Urea Nitrogen 30 MG/DL Creatinine 1.19 MG/DL Random Glucose 137 MG/DL Total Protein 6.1 GM/DL 6.5 GM/DL Albumin 2.9 GM/DL Calcium Level 7.8 MG/DL Alkaline Phosphatase 80 U/L Aspartate Amino Transf (AST/SGOT) 37 U/L Alanine Aminotransferase (ALT/SGPT) 35 U/L Total Bilirubin 1.4 MG/DL Sodium Level 141 MEQ/L Potassium Level 4.2 MEQ/L Chloride Level 107 MEQ/L Carbon Dioxide Level 24.8 MEQ/L Anion Gap 9 MEQ/L Estimat Glomerular Filtration Rate 46 ML/MIN Lactate Dehydrogenase 289 U/L Prothrombin Time 11.5 SEC Prothromb Time International Ratio 1.1 RATIO Activated Partial Thromboplast Time 26.1 SEC Test 04/12/17 13:55 04/13/17 08:20 04/13/17 08:34 Peritoneal Fluid WBC 487 /MM3 Peritoneal Fluid RBC 8203 /MM3 Peritoneal Fluid Neutrophils 3 % Peritoneal Fluid Lymphocytes 97 % Peritoneal Fluid Comment Peritoneal Fluid Total Protein 3.2 GM/DL Peritoneal Fluid Albumin 1.7 G/DL Peritoneal Fluid LDH 161 U/L Peritoneal Fluid Glucose 228 MG/DL Imaging Last Impressions Cyst Biopsy Asp-Paracentesis US 04/12/17 0000 Signed Impressions: Service Date/Time: Wednesday, April 12, 2017 13:09 - CONCLUSION: Uncomplicated ultrasound guided paracentesis. Eber Hernández MD Head CT 04/11/171218 Signed Impressions: Service Date/Time: Tuesday, April 11, 2017 12:41 - CONCLUSION: No acute disease. Sabra Sexton MD Chest X-Ray 04/11/171218 Signed Impressions: Service Date/Time: Tuesday, April 11, 2017 12:51 - CONCLUSION: No acute disease. Sabra Sexton MD Abdomen/Pelvis CT 04/11/17 0000 Signed Impressions: Service Date/Time: Tuesday, April 11, 2017 17:23 - CONCLUSION: Large amount of ascitic fluid throughout the abdomen and pelvis. Large defect in the right lateral abdominal wall with ascitic fluid protruding through this as well as small amount of bowel, representing a hernia. There is a metallic radiopaque foreign body just anterior to the upper pole the left kidney and posterior to the stomach gastric fundus which may be in a potential region of the adrenal gland. Its etiology and significance is indeterminate. Normal bowel distribution with no evidence of obstruction Maykel Cabrales MD Objective Remarks GENERAL: Well-nourished, well-developed pleasant female patient in [facility]. SKIN: Warm and dry. No rash. Eyes; pupils equal round reactive recommendation extraocular muscles intact no scleral icterus HEENT: Normocephalic. Atraumatic.Pupils equal and round. Mucous membranes pink and moist. Tongue is midline oropharynx clear Neck is supple no JVD CARDIOVASCULAR: Regular rate and rhythm. S1, S2 noted. No murmur appreciated. No S3 or S4 RESPIRATORY: No accessory muscle use. Clear to auscultation. Breath sounds equal bilaterally. GASTROINTESTINAL: Abdomen soft, less distended with positive fluid wave; incisional hernia at right abdominal wall without evidence of incarceration. Normoactive bowel sounds x4. MUSCULOSKELETAL: No obvious deformities. Extremities without clubbing, cyanosis , or edema. NEUROLOGICAL: Awake and alert. No obvious cranial nerve deficits. Motor grossly within normal limits. Normal speech. PSYCHIATRIC: Appropriate mood and affect; insight and judgment normal. Procedures PARACENTESIS 2- SANTOSH RAND Signed EXAM DATE/TIME: 04/12/2017 13:09 [place] COMPARISON: US GUIDED ABD PARACENTESIS, April 23, 2016, 14:29. INDICATIONS : Ascites. Intra-procedural antibiotics were given as prescribed above. MEDICAL HISTORY : Chronic obstructive pulmonary disease. Diabetic. SURGICAL HISTORY : Liver transplant. Cholecystectomy. section. ENCOUNTER: Subsequent ACUITY: 1 day PAIN SCORE: 0/10 LOCATION: Left lower quadrant FLUID: Total volume of 3200 cc of clear pale red fluid was removed. Fluid was sent to lab for ordered studies. Post procedure scanning reveals no hematoma or other complication. TECHNIQUE: 1. Ultrasound guidance for abdominal paracentesis. 2. Paracentesis. The risks, benefits, and alternatives to ultrasound guided paracentesis were explained to the patient in detail including the risk of bleeding and infection. Written and verbal informed consent was obtained. With the patient on the ultrasound table, ultrasound imaging was used to select the most appropriate approach for paracentesis. Overlying skin was prepped and draped in the usual sterile fashion and with a local anesthetic, a dermatotomy was made with an 11 blade scalpel. A 6 Indian [id number] catheter was introduced into the peritoneal cavity and fluid was collected. The patient tolerated the procedure well and left the ultrasound suite in stable condition. CONCLUSION: Uncomplicated ultrasound guided paracentesis. Medications and IVs Current Medications Ondansetron HCl (Zofran Inj) 4 mg ONCE ONCE IV PUSH Last administered on at 13:35; Start 04/11/17 at 13:15; Stop 04/11/17 at 13:16; Status DC Sodium Chloride 500 ml @ 500 mls/hr BOLUS ONCE IV Last administered on at 13:35; Start 04/11/17 at 13:30; Stop 04/11/17 at 14:29; Status DC Sodium Chloride 1,000 ml @ 100 mls/hr Q10H IV Last administered on 04/13/17at 04:19; Start 04/11/17 at 15:00 Sodium Chloride (NS Flush) 2 ml UNSCH PRN IV FLUSH FLUSH AFTER USING IV ACCESS ; Start 04/11/17 at 15:15 Sodium Chloride (NS Flush) 2 ml BID IV FLUSH Last administered on 04/12/17at 20: 32; Start 04/11/17 at 21:00 Ondansetron HCl (Zofran Inj) 4 mg Q6H PRN IVP NAUSEA OR VOMITING; Start at 15:15 Enoxaparin Sodium (Lovenox Inj) 40 mg Q24H SQ ; Start 04/11/17 at 16:00; Stop at 16:00; Status DC Naloxone HCl (Narcan Inj) 0.4 mg UNSCH PRN IV PUSH SEE LABEL COMMENTS; Start at 15:15 Sennosides (Senokot) 17.2 mg Q12H PRN PO Moderate constipation; Start 04/11/17 at 15:15 Bisacodyl (Dulcolax Supp) 10 mg DAILY PRN RECTAL SEVERE CONSITIPATION; Start at 15:15 Lactulose (Lactulose Liq) 30 ml DAILY PRN PO SEVERE CONSITIPATION; Start at 15:15 Insulin Aspart (NovoLOG SUPPLEMENTAL SCALE) 1 ACHS SLIDING SCALE SQ Last administered on 04/12/17at 17:00; Start 04/11/17 at 17:00 Aspirin (Aspirin Chew) 81 mg DAILY CHEW Last administered on 04/13/17at 08:56; Start 04/12/17 at 09:00 Cyclosporine (SandIMMUNE) 100 mg BID PO Last administered on 04/13/17at 08:55; Start 04/11/17 at 21:00 Furosemide (Lasix) 40 mg DAILY PO Last administered on 04/13/17at 08:56; Start 04/12/17 at 09:00 Insulin Glargine (Lantus Inj) 18 units HS SQ ; Start 04/11/17 at 21:00; Stop 12/17 at 21:00; Status DC Dextrose (D50w (Vial) Inj) 50 ml UNSCH PRN IV PUSH HYPOGLYCEMIA - SEE COMMENTS ; Start 04/11/17 at 15:15 Glucagon (Glucagon Inj) 1 mg UNSCH PRN OTHER HYPOGLYCEMIA-SEE COMMENTS; Start 04/11/17 at 15:15 Albuterol/ Ipratropium (Duoneb Neb) 1 ampule Q4HR NEB NEB Last administered on 04/12/17at 07:51; Start 04/11/17 at 16:00 Guaifenesin (Mucinex Er) 600 mg BID PO Last administered on 04/13/17at 08:55; Start 04/11/17 at 21:00 Heparin Sodium (Porcine) (Heparin Inj) 5,000 units Q12HR SQ Last administered on 04/12/17at 08:32; Start 04/12/17 at 09:00; Status Future Hold Sucralfate (Carafate) 1 gm ACHS PO Last administered on 04/13/17at 08:55; Start 04/11/17 at 17:00 Famotidine (Pepcid Inj) 10 mg Q12H IV PUSH Last administered on 04/13/17at 04:18 ; Start 04/11/17 at 16:00 Spironolactone (Aldactone) 50 mg DAILY PO Last administered on 04/13/17at 08:58 ; Start 04/12/17 at 09:00 Insulin Detemir (Levemir Inj) 10 units ONCE ONCE SQ Last administered on at 14:00; Start 04/12/17 at 14:00; Stop 04/12/17 at 14:01; Status DC Lidocaine HCl (Xylocaine 1% Inj) 20 ml STK-MED ONCE .ROUTE Last administered on 04/12/17at 14:49; Start 04/12/17 at 14:49; Stop 04/12/17 at 14:50; Status DC Clonidine (Catapres) 0.1 mg Q6H PRN PO SBP> OR = 180, DBP> OR = 100 Last administered on 04/12/17at 17:44; Start 04/12/17 at 17:15 Gabapentin (Neurontin) 900 mg HS PO Last administered on 04/12/17at 23:38; Start 04/12/17 at 21:15 A/P Problem List: (1) Ascites ICD Code: R18.8 - Other ascites Status: Acute (2) TRICIA (acute kidney injury) ICD Code: N17.9 - Acute kidney failure, unspecified Status: Acute Assessment and Plan 67-year-old female with history of DM, CONNELL, s/p Liver Transplant 2 years ago, COPD, presents with acute onset abdominal pain, nausea/vomiting. Abdominal Pain/Nausea/Vomiting: suspect secondary to significant ascites. Afebrile, no leukocytosis. Hx of requiring recurrent paracentesis, most recently 03/31. Ammonia wnl. -CT abd/pelvis images reviewed, shows large amount of ascitic fluid through the abdomen and pelvis; large hernia defect in the right lateral abdominal wall with ascitic fluid protruding through and small about of bowel. -GI Consulted -Continue patient's cyclosporine, spironolactone, and lasix -Supportive treatment with IVF hydration, pain control and antiemetics prn -Status post US guided paracentesis by interventional radiology yesterday Anemia: Hgb dropped from 12.0 to 10.0 overnight, suspect secondary to hemodilutional, patient dehydrated upon arrival -no active signs of bleeding -continue to monitor CBC TRICIA: Cr 1.40 upon arrival, suspect secondary to dehydration with recent vomiting -given IVF hydration -repeat labs show improvement with Cr 1.19 -avoid nephrotoxins -monitor COPD: chronic, stable, does not appear to be in exacerbation -duonebs q4h Diabetes Mellitus: chronic -patient now tolerating oral intake and BG increased to 298, will give levemir 10u (patient on 18u at home however only on liquid diet currently) -monitor Accu-checks and cover with SSI -HgbA1c pending Wants to go home has been cleared by gastroenterology will discharge to home today Discharge Planning Discharge to home today Umesh Brink DO Apr 13, 2017 09:56
[2017-04-13 10:04] LABS: HEMATOCRIT 29.3 % (35.0-46.0); HEMOGLOBIN 9.9 GM/DL (11.6-15.3); MEAN CELL VOLUME 106.3 FL (80.0-100.0); MEAN CORPUSCULAR HEMOGLOBIN 36.1 PG (27.0-34.0); MEAN CORPUSCULAR HGB CONC 33.9 % (32.0-36.0); MEAN PLATELET VOLUME 8.3 FL (7.0-11.0); PLATELET COUNT 70 TH/MM3 (150-450); RED BLOOD COUNT 2.76 MIL/MM3 (4.00-5.30); RED CELL DISTRIBUTION WIDTH 15.5 % (11.6-17.2); WHITE BLOOD COUNT 2.9 TH/MM3 (4.0-11.0)
[2017-04-13] MEDS ORDERED: ALDA50TA2 PO (10:05)
[2017-04-13] MEDS ORDERED: VENTAER INH (10:05)
[2017-04-13] MEDS ORDERED: CARA1TAB6 PO (10:05)
[2017-04-13] MEDS ORDERED: FAMO20TA2 PO (10:05)
[2017-04-13] MEDS ORDERED: guaiFENesin ER PO (10:05)
--- NOTE | 2017-04-13 10:08 | HHI.GIFU ---
Subjective Remarks pt feeling better, n/v improved. s/p paracentesis. eager to go home. (Roberta Castro) Objective Vitals I&O Vital Signs Date Time Temp Pulse Resp B/P (MAP) Pulse Ox O2 Delivery O2 Flow Rate FiO2 04/13/17 08:06 21 04/13/17 07:54 81 04/13/17 07:34 97.8 56 20 118/56 (76) 94 04/13/17 04:58 96.6 18 04/13/17 03:20 98.1 65 16 130/65 (86) 98 04/12/17 23:19 98.0 62 16 130/59 (82) 98 04/12/17 20:38 97.4 64 18 134/62 (86) 98 04/12/17 19:36 99 21 04/12/17 18:36 117/57 (77) 04/12/17 16:29 68 04/12/17 16:01 98.4 60 18 188/79 (115) 100 04/12/17 11:52 97.7 72 18 152/70 (97) 99 I/O 04/12/17 04/12/17 04/12/17 04/13/17 04/13/17 04/13/17 07:00 15:00 23:00 07:00 15:00 23:00 Output Total 550 ml Balance -550 ml Output Urine Total 550 ml # Voids 1 Laboratory Laboratory Tests Test 04/12/17 13:15 04/12/17 13:18 04/12/17 13:55 04/13/17 08:20 White Blood Count 3.7 Red Blood Count 2.92 Hemoglobin 10.4 Hematocrit 31.3 Mean Corpuscular Volume 107.0 Mean Corpuscular Hemoglobin 35.7 Mean Corpuscular Hemoglobin Concent 33.3 Red Cell Distribution Width 15.4 Platelet Count 77 Mean Platelet Volume 8.2 Lactate Dehydrogenase 289 Total Protein 6.5 Prothrombin Time 11.5 Prothromb Time International Ratio 1.1 Activated Partial Thromboplast Time 26.1 Peritoneal Fluid WBC 487 Peritoneal Fluid RBC 8203 Peritoneal Fluid Neutrophils 3 Peritoneal Fluid Lymphocytes 97 Peritoneal Fluid Comment Peritoneal Fluid Total Protein 3.2 Peritoneal Fluid Albumin 1.7 Peritoneal Fluid LDH 161 Peritoneal Fluid Glucose 228 Test 04/13/17 08:34 Date/Time Source Procedure Growth Status 04/11/17 15:30 Blood Peripheral Aerobic Blood Culture - Preliminary NO GROWTH IN 1 DAY Resulted 04/11/17 15:30 Blood Peripheral Anaerobic Blood Culture - Preliminary NO GROWTH IN 1 DAY Resulted 04/12/17 13:55 Fluid Peritoneal Fluid Gram Stain - Final Resulted 04/12/17 13:55 Fluid Peritoneal Fluid Body Fluid Culture Pending Resulted 04/11/17 12:30 Nasal Washing Influenza Types A,B Antigen (STEFANIE) - Final NEGATIVE FOR FLU A AND B ANTIGEN.... Complete 04/11/17 13:30 Urine Catheterized Urine Urine Culture - Preliminary IMMATURE GROWTH - REINCUBATE Resulted Imaging Last Impressions Cyst Biopsy Asp-Paracentesis US 04/12/17 0000 Signed Impressions: Service Date/Time: Wednesday, April 12, 2017 13:09 - CONCLUSION: Uncomplicated ultrasound guided paracentesis. Eber Hernández MD Head CT 04/11/17 1219 Signed Impressions: Service Date/Time: Tuesday, April 11, 2017 12:41 - CONCLUSION: No acute disease. Sabra Sexton MD Chest X-Ray 04/11/17 1219 Signed Impressions: Service Date/Time: Tuesday, April 11, 2017 12:51 - CONCLUSION: No acute disease. Sabra Sexton MD Abdomen/Pelvis CT 04/11/17 0000 Signed Impressions: Service Date/Time: Tuesday, April 11, 2017 17:23 - CONCLUSION: Large amount of ascitic fluid throughout the abdomen and pelvis. Large defect in the right lateral abdominal wall with ascitic fluid protruding through this as well as small amount of bowel, representing a hernia. There is a metallic radiopaque foreign body just anterior to the upper pole the left kidney and posterior to the stomach gastric fundus which may be in a potential region of the adrenal gland. Its etiology and significance is indeterminate. Normal bowel distribution with no evidence of obstruction Maykel Cabrales MD Physical Exam HEENT: Normocephalic; atraumatic CHEST: Even/unlabored CARDIAC: RRR ABDOMEN: mildly Distended, soft, nontender, bowel sounds active. EXTREMITIES: No clubbing, cyanosis, or edema. UNIVERSAL GRINDER TOOL: No focal deficits; alert and oriented times three. (Roberta Castro) Assessment and Plan Plan Assessment - N/V began suddenly last night, subsided about an hour ago in ER. Denies associated abdominal pain. Diarrhea yesterday morning, took OTC anti-diarrhea medication with relief. Denies fever, chills. Unsure of sick contacts. Pt reports relief since receiving fluids. - Abdominal swelling- Gets paracentesis once a month since liver transplant- last one Mar 31 before traveling here on vacation. Also on Spironolactone and Lasix. - History of liver transplant- Nov 2015- Done in [place]- on Cyclosporine since November?- no recent changes to medication- Hospitalized in October for AMS, was found staring at the wall confused, pt reports it was never discovered the reason for the AMS. Ammonia was not found to be elevated - Last EGD Nov 2015- esophageal varices, otherwise normal - Unsure when last colonoscopy was, states normal exam (04/12) --> No nausea and vomiting over night. Tolerating diet. Ammonia level WNL. CT abdomen and pelvis (04/11) --> Large amount of ascitic fluid throughout the abdomen and pelvis. Large defect in the right lateral abdominal wall with ascitic fluid protruding through this as well as small amount of bowel. (Pt with known incisional hernia). There is a metallic radiopaque foreign body just anterior to the upper pole the left kidney and posterior to the stomach gastric fundus which mas be in a potential region of the adrenal gland. Its etiology and significance is indeterminate. (no previous imaging to compare). Normal bowel distribution with no evidence of obstruction. Will plan for paracentesis. Cyclosporine level still pending. LFTs now WNL. Drop in H/H noted, possibly somewhat dilutional. Has been on IVF 100mL/hr. Also has decreased renal function. Started on Heparin this morning, no obvious GIB. 04/13/17 s/p paracentesis. SAAG 1.2. peritoneal fluid cx and cytology pending. cyclosporine 435. n/v improved. HH stable. today's LFTs pending. Plan: - low sodium diet - continue diuretics - f/u with transplant team - await peritoneal fluid cx and cytology - ok to d/c home from GI standpoint Pt has been seen and examined by myself and Dr. Hameed and this note is written on his behalf (Roberta Castro) Physician Comments Patient seen and examined Agree with above Continue with current supportive care Monitor labs Okay for discharge home follow-up with GI post discharge (Gerson Hameed MD) Roberta Castro Apr 13, 2017 10:08 Gerson Hameed MD Apr 13, 2017 19:55
--- NOTE | 2017-04-13 10:12 | HHI.DS ---
Discharge Summary Admission Date Apr 11, 2017 at 17:19 Discharge Date: Apr 13, 2017 Admitting Diagnosis ABDOMINAL PAIN (1) Ascites ICD Code: R18.8 - Other ascites Diagnosis: Principal Status: Acute (2) TRICIA (acute kidney injury) ICD Code: N17.9 - Acute kidney failure, unspecified Diagnosis: Principal Status: Acute (3) Dizziness ICD Code: R42 - Dizziness and giddiness Diagnosis: Secondary Status: Acute (4) Pre-syncope ICD Code: R55 - Syncope and collapse Diagnosis: Secondary Status: Acute (5) Weakness ICD Code: R53.1 - Weakness Diagnosis: Secondary Status: Acute Procedures PARACENTESIS 2-11 SANTOSH RAND Signed EXAM DATE/TIME: 04/12/2017 13:09 [place] COMPARISON: US GUIDED ABD PARACENTESIS, April 23, 2016, 14:29. INDICATIONS : Ascites. Intra-procedural antibiotics were given as prescribed above. MEDICAL HISTORY : Chronic obstructive pulmonary disease. Diabetic. SURGICAL HISTORY : Liver transplant. Cholecystectomy. section. ENCOUNTER: Subsequent ACUITY: 1 day PAIN SCORE: 0/10 LOCATION: Left lower quadrant FLUID: Total volume of 3200 cc of clear pale red fluid was removed. Fluid was sent to lab for ordered studies. Post procedure scanning reveals no hematoma or other complication. TECHNIQUE: 1. Ultrasound guidance for abdominal paracentesis. 2. Paracentesis. The risks, benefits, and alternatives to ultrasound guided paracentesis were explained to the patient in detail including the risk of bleeding and infection. Written and verbal informed consent was obtained. With the patient on the ultrasound table, ultrasound imaging was used to select the most appropriate approach for paracentesis. Overlying skin was prepped and draped in the usual sterile fashion and with a local anesthetic, a dermatotomy was made with an 11 blade scalpel. A 6 [place] Myd-I-[id number] catheter was introduced into the peritoneal cavity and fluid was collected. The patient tolerated the procedure well and left the ultrasound suite in stable condition. CONCLUSION: Uncomplicated ultrasound guided paracentesis. 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 Per patient she's had episodes like this in the past, treated last time for UTI with Ciprofloxacin, She does get paracentesis every month and had one about 2 weeks ago with no issues. She denies any chest pain or shortness of breath. Per patient when she vomits she vomits phlegm. No blood. No blood in the stool or urine or throw up. Denies any cold-like symptoms. No fevers chills or sweats. She does state feeling somewhat tired more weak than her usual. noted some weight gain due to that she is eating more and also Abdominal hernia after transplant. Patient seen in Emergency room in the presence of her Mr. Brad Rand, she had her Liver Transplant on November 03 2015 at [place], [place], by Transplant Specialist Doctor Deedee Hollins, she states that came for vacation to this area, from the last day started with Nausea, vomit but no diarrhea, does not have appetite and does not want to eat anything, had dizziness and generalized numbness, denies any chest pain, her EKG reviewed and has some ischemic changes. Troponin within normal limits will continue titration of Cardiac enzymes and Cardiac monitoring. CBC/BMP: 04/12/17 1315 04/12/17 0620 Significant Findings Laboratory Tests Test 04/11/17 12:30 04/11/17 13:30 04/11/17 19:00 04/11/17 19:06 Red Blood Count 3.41 MIL/MM3 (4.00-5.30) Mean Corpuscular Volume 105.5 FL (80.0-100.0) Mean Corpuscular Hemoglobin 35.2 PG (27.0-34.0) Platelet Count 113 TH/MM3 (150-450) Lymphocytes (%) (Auto) 44.6 % (9.0-44.0) Activated Partial Thromboplast Time 22.9 SEC (24.3-30.1) Blood Urea Nitrogen 38 MG/DL (7-18) Creatinine 1.40 MG/DL (0.50-1.00) Random Glucose 178 MG/DL (74-106) Calcium Level 8.2 MG/DL (8.5-10.1) Alkaline Phosphatase 124 U/L (45-117) Aspartate Amino Transf (AST/SGOT) 80 U/L (15-37) Total Bilirubin 1.2 MG/DL (0.2-1.0) Potassium Level 5.3 MEQ/L (3.5-5.1) Chloride Level 109 MEQ/L (98-107) Estimat Glomerular Filtration Rate 38 ML/MIN (>89) Total Creatine Kinase 262 U/L (26-192) Troponin I LESS THAN 0.02 NG/ML LESS THAN 0.02 NG/ML Lipase LESS THAN 10 U/L (73-393) Urine Leukocyte Esterase TRACE (NEG) Urine Bacteria RARE /hpf (NONE) Test 04/12/17 01:22 04/12/17 06:20 04/12/17 13:15 04/12/17 13:18 Hemoglobin A1c 8.2 % (4.3-6.0) Troponin I LESS THAN 0.02 NG/ML Vitamin B12 Level 1271 PG/ML (193-986) Red Blood Count 2.76 MIL/MM3 (4.00-5.30) 2.92 MIL/MM3 (4.00-5.30) Hemoglobin 10.0 GM/DL (11.6-15.3) 10.4 GM/DL (11.6-15.3) Hematocrit 29.3 % (35.0-46.0) 31.3 % (35.0-46.0) Mean Corpuscular Volume 106.1 FL (80.0-100.0) 107.0 FL (80.0-100.0) Mean Corpuscular Hemoglobin 36.1 PG (27.0-34.0) 35.7 PG (27.0-34.0) Platelet Count 80 TH/MM3 (150-450) 77 TH/MM3 (150-450) Lymphocytes (%) (Auto) 64.2 % (9.0-44.0) Monocytes (%) (Auto) 9.8 % (0.0-8.0) Neutrophils # (Auto) 1.0 TH/MM3 (1.8-7.7) Platelet Estimate LOW (NORMAL) Ovalocytes 1+ (NORMAL) Blood Urea Nitrogen 30 MG/DL (7-18) Creatinine 1.19 MG/DL (0.50-1.00) Random Glucose 137 MG/DL (74-106) Total Protein 6.1 GM/DL (6.4-8.2) Albumin 2.9 GM/DL (3.4-5.0) Calcium Level 7.8 MG/DL (8.5-10.1) Total Bilirubin 1.4 MG/DL (0.2-1.0) Estimat Glomerular Filtration Rate 46 ML/MIN (>89) White Blood Count 3.7 TH/MM3 (4.0-11.0) Lactate Dehydrogenase 289 U/L (84-246) Test 04/12/17 13:55 04/13/17 08:20 04/13/17 08:34 Peritoneal Fluid WBC 487 /MM3 (0-10) Peritoneal Fluid RBC 8203 /MM3 (0-0) Imaging Last Impressions Cyst Biopsy Asp-Paracentesis US 04/12/17 0000 Signed Impressions: Service Date/Time: Wednesday, April 12, 2017 13:09 - CONCLUSION: Uncomplicated ultrasound guided paracentesis. Eber Hernández MD Head CT 04/11/17 1219 Signed Impressions: Service Date/Time: Tuesday, April 11, 2017 12:41 - CONCLUSION: No acute disease. Sabra Sexton MD Chest X-Ray 04/11/171218 Signed Impressions: Service Date/Time: Tuesday, April 11, 2017 12:51 - CONCLUSION: No acute disease. Sabra Sexton MD Abdomen/Pelvis CT 04/11/17 0000 Signed Impressions: Service Date/Time: Tuesday, April 11, 2017 17:23 - CONCLUSION: Large amount of ascitic fluid throughout the abdomen and pelvis. Large defect in the right lateral abdominal wall with ascitic fluid protruding through this as well as small amount of bowel, representing a hernia. There is a metallic radiopaque foreign body just anterior to the upper pole the left kidney and posterior to the stomach gastric fundus which may be in a potential region of the adrenal gland. Its etiology and significance is indeterminate. Normal bowel distribution with no evidence of obstruction Maykel Cabrales MD PE at Discharge GENERAL: Well-nourished, well-developed pleasant female patient in [facility]. SKIN: Warm and dry. No rash. Eyes; pupils equal round reactive recommendation extraocular muscles intact no scleral icterus HEENT: Normocephalic. Atraumatic.Pupils equal and round. Mucous membranes pink and moist. Tongue is midline oropharynx clear Neck is supple no JVD CARDIOVASCULAR: Regular rate and rhythm. S1, S2 noted. No murmur appreciated. No S3 or S4 RESPIRATORY: No accessory muscle use. Clear to auscultation. Breath sounds equal bilaterally. GASTROINTESTINAL: Abdomen soft, less distended with positive fluid wave; incisional hernia at right abdominal wall without evidence of incarceration. Normoactive bowel sounds x4. MUSCULOSKELETAL: No obvious deformities. Extremities without clubbing, cyanosis , or edema. NEUROLOGICAL: Awake and alert. No obvious cranial nerve deficits. Motor grossly within normal limits. Normal speech. PSYCHIATRIC: Appropriate mood and affect; insight and judgment normal. 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 Per patient she's had episodes like this in the past, treated last time for UTI with Ciprofloxacin, She does get paracentesis every month and had one about 2 weeks ago with no issues. She denies any chest pain or shortness of breath. Per patient when she vomits she vomits phlegm. No blood. No blood in the stool or urine or throw up. Denies any cold-like symptoms. No fevers chills or sweats. She does state feeling somewhat tired more weak than her usual. noted some weight gain due to that she is eating more and also Abdominal hernia after transplant. Patient seen in Emergency room in the presence of her Mr. Brad Rand, she had her Liver Transplant on November 03 2015 at [place], [place], by Transplant Specialist Doctor Deedee Hollins, she states that came for vacation to this area, from the last day started with Nausea, vomit but no diarrhea, does not have appetite and does not want to eat anything, had dizziness and generalized numbness, denies any chest pain, her EKG reviewed and has some ischemic changes. Troponin within normal limits will continue titration of Cardiac enzymes and Cardiac monitoring. 2-11 HAD PARACENTESIS 2-12 IMPROVED WANTS TO GO HOME DW GI WHO HAS CLEARED HER FOR DISCHARGE DC TO HOME TODAY FOLLOW UP WITH GI 1-2 WEEKS 67-year-old female with history of DM, CONNELL, s/p Liver Transplant 2 years ago, COPD, presents with acute onset abdominal pain, nausea/vomiting. Abdominal Pain/Nausea/Vomiting: suspect secondary to significant ascites. Afebrile, no leukocytosis. Hx of requiring recurrent paracentesis, most recently 03/31. Ammonia wnl. -CT abd/pelvis images reviewed, shows large amount of ascitic fluid through the abdomen and pelvis; large hernia defect in the right lateral abdominal wall with ascitic fluid protruding through and small about of bowel. -GI Consulted -Continue patient's cyclosporine, spironolactone, and lasix -Supportive treatment with IVF hydration, pain control and antiemetics prn -Status post US guided paracentesis by interventional radiology yesterday Anemia: Hgb dropped from 12.0 to 10.0 overnight, suspect secondary to hemodilutional, patient dehydrated upon arrival -no active signs of bleeding -continue to monitor CBC TRICIA: Cr 1.40 upon arrival, suspect secondary to dehydration with recent vomiting -given IVF hydration -repeat labs show improvement with Cr 1.19 -avoid nephrotoxins -monitor COPD: chronic, stable, does not appear to be in exacerbation -duonebs q4h Diabetes Mellitus: chronic -patient now tolerating oral intake and BG increased to 298, will give levemir 10u (patient on 18u at home however only on liquid diet currently) -monitor Accu-checks and cover with SSI -HgbA1c pending RESUME HOME DM MEDICATIONS Wants to go home has been cleared by gastroenterology will discharge to home today Pt Condition on Discharge: Good Discharge Disposition: Discharge Home Discharge Time: > 30 minutes Discharge Instructions DIET: Follow Instructions for: Heart Healthy Diet Speech Therapy-Diet Recommends: Regular Activities you can perform: Regular-No Restrictions Follow up Referrals: Gastroenterology - 2 Weeks with Gerson Hameed MD PCP Follow-up - 2 Weeks New Medications: Albuterol 18 GM Inh (Ventolin Hfa 18 GM Inh) 90 Mcg/Act Aer 2 PUFF INH Q4-6H PRN for SHORTNESS OF BREATH, #1 INHALER 0 Refills Famotidine (Famotidine) 20 Mg Tab 20 MG PO BID for Manage Heartburn, #60 TAB 0 Refills Spironolactone (Aldactone) 50 Mg Tab 50 MG PO DAILY for Blood Pressure Management, #30 TAB Sucralfate (Carafate) 1 Gram Tab 1 GM PO ACHS for Manage Heartburn, #120 TAB [guaiFENesin ER] () 600 MG TABCR 600 MG PO BID for Cough, #60 TAB Continued Medications: Aspirin (Aspirin) 81 Mg Chew 81 MG CHEW DAILY, TAB 0 Refills Cyclosporine (Cyclosporine) 100 Mg Cap 100 MG PO BID, CAP 0 Refills Furosemide (Lasix) 20 Mg Tab 40 MG PO DAILY, #30 TAB 0 Refills Gabapentin (Gabapentin) 300 Mg Cap 900 MG PO HS, #90 CAP 0 Refills Insulin Glargine Inj (Lantus Inj) 1,000 Unit/10 Ml Vial 18 UNITS SQ HS for Blood Sugar Management, VIAL 0 Refills Insulin Lispro (Human) Inj (Humalog Inj) 1,000 Unit/10 Ml Vial 1-9 UNITS SQ ACHS for Blood Sugar Management, #1 VIAL 0 Refills Max dose at bedtime:( )units; sugars< 70,(0)units; sugars 150-199,(1)unit; sugars 200-249,(3)units; sugars 250-299,(5)units; sugars 300-349,(7)units; sugars more than 349,(9)units. Discontinued Medications: Gabapentin (Gabapentin) 300 Mg Cap 900 MG PO HS, #90 CAP 0 Refills Umesh Brink DO Apr 13, 2017 10:12
[2017-04-13 10:28] LABS: BICARBONATE 24.7 MEQ/L (21.0-32.0); CALCIUM 8.2 MG/DL (8.5-10.1); CREATININE 1.17 MG/DL (0.50-1.00)
[2017-04-13 11:03] LABS: LYMPHOCYTES 59 % (9-44); MONOCYTES 10 % (0-8); MYELOCYTES 1 % (0-0); NEUTROPHIL # MANUAL DIFF 0.8 TH/MM3 (1.8-7.7); OVALOCYTES 1+ (NORMAL); POLYS (SEG NEUTROPHILS) 28 % (16-70); SMUDGE CELLS PRESENT PRESENT
--- NOTE | 2017-04-13 19:05 | ECHRPT ---
Indication: cardiomyopathy CONCLUSIONS Normal left ventricular size. The left ventricular systolic function is normal with an estimated ejection fraction in the range of 55-60%. [id number] mitral valve regurgitation. Trace aortic valve regurgitation. There is mild tricuspid valve regurgitation. Mitral annular calcification. The estimated pulmonary arterial pressure is 38 mmHg. BP: / HR: Rhythm: MEASUREMENTS (Male / Female) Normal Values Technical Quality:Good 2D ECHO LV Diastolic Diameter PLAX 4.9 cm 4.2 - 5.9 / 3.9 - 5.3 cm LV Systolic Diameter PLAX 3.7 cm IVS Diastolic Thickness 0.8 cm 0.6 - 1.0 / 0.6 - 0.9 cm LVPW Diastolic Thickness 0.9 cm 0.6 - 1.0 / 0.6 - 0.9 cm LV Relative Wall Thickness 0.3 RV Internal Dim ED PLAX 2.5 cm M-MODE Aortic Root Diameter MM 3.7 cm LA Systolic Diameter MM 4.0 cm LA Ao Ratio MM 1.1 AV Cusp Separation MM 2.2 cm DOPPLER MV Area PHT 1.9 cm Mitral E Point Velocity 73.5 cm/s Mitral A Point Velocity 90.8 cm/s Mitral E to A Ratio 0.8 LV E' Lateral Velocity 7.6 cm/s Mitral E to LV E' Lateral Ratio 9.7 LV E' Septal Velocity 6.6 cm/s Mitral E to LV E' Septal Ratio 11.1 TR Peak Velocity 263.0 cm/s TR Peak Gradient 27.7 mmHg Right Atrial Pressure 10.0 mmHg Pulmonary Artery Systolic Pressu 37.7 mmHg Right Ventricular Systolic Press 37.7 mmHg FINDINGS LEFT VENTRICLE Normal left ventricular size. The left ventricular systolic function is normal with an estimated ejection fraction in the range of 55-60%. RIGHT VENTRICLE Normal right ventricular size and systolic function. LEFT ATRIUM The left atrial size is normal. RIGHT ATRIUM The right atrial size is normal. ATRIAL SEPTUM Normal atrial septal thickness without atrial level shunting by limited color doppler interrogation. AORTA The aortic root and proximal ascending aorta are normal in size on limited imaging. MITRAL VALVE Mitral annular calcification. [id number] mitral valve regurgitation. AORTIC VALVE Trileaflet aortic valve. No aortic valve stenosis. Trace aortic valve regurgitation. TRICUSPID VALVE Structurally normal tricuspid valve. There is mild tricuspid valve regurgitation. The estimated pulmonary arterial pressure is 37.7 mmHg. PULMONARY VALVE No pulmonary valve regurgitation or stenosis. VESSELS The inferior vena cava is normal in size. PERICARDIUM No pericardial effusion. Sabrina Villasenor MD, FACC (Electronically Signed) Final Date:13 April 2017 19:04
[2017-04-14 14:06] LABS: AMYLASE BODY FLUID 13 U/L; AMYLASE BODY FLUID TYPE PERITONEAL
== END 2017-04-13 11:32 | disposition home or self-care (01) | DRG 683 ==
LOC: NEPE 11:54 → NEDA 15:08 → NEPHCDU 16:45 → OBSVTOIN 17:19
PROVIDERS: ADMIT Hospitalist; ATTEND Hospitalist
PROC: 0W9G3ZZ Drainage of Peritoneal Cavity, Percutaneous Approach (ICD-10-PCS; principal; 2017-04-12)
DX: N17.9 Acute kidney failure, unspecified (principal); R18.8 Other ascites; Z94.4 Liver transplant status; J44.9 Chronic obstructive pulmonary disease, unspecified; E11.9 Type 2 diabetes mellitus without complications; D64.9 Anemia, unspecified; E86.0 Dehydration; K43.2 Incisional hernia without obstruction or gangrene; Z79.4 Long term (current) use of insulin
CPT/HCPCS: 49083; 70450; 71045; 74176; 80048; 80053; 80061; 80158; 81001; 82042; 82140; 82150; 82550; 82552; 82607; 82746; 82945; 82948; 83036; 83605; 83615; 83690; 83735; 84155; 84157; 84439; 84443; 84484; 85007; 85025; 85027; 85610; 85730; 87040; 87070; 87086; 87205; 87804; 88112; 88305; 89051; 93005; 93306; 94150; 94640; 94664; 96374; C1729; J1644; J1815; J2405; J7030; J7040; J7502